=== PATIENT | female | born 1950 | race Caucasian/White ===

== ENCOUNTER → 2019-02-08 | Outpatient (CLI) | payer MEDICARE, OTHER ==
[~2019-02-08] MED LIST: ALPR0.5T PO; ASPI325T32 PO; CRV25T PO; IBUP-2055 PO; LISI-552 PO; METF-397 PO; NITR0.4T39 SL; OMEP40CA36 PO; PREG75CA PO; RANI-514 PO; RT-ALBUINH IH; SIMV20TA3 PO
== END ==
LOC: RAD 12:48
PROVIDERS: ATTEND Internal Medicine Interventional Cardiology
DX: I25.10 Atherosclerotic heart disease of native coronary artery without angina pectoris (principal); E11.9 Type 2 diabetes mellitus without complications; I10 Essential (primary) hypertension; E78.01 Familial hypercholesterolemia; E66.01 Morbid (severe) obesity due to excess calories
CPT/HCPCS: 93306

== ENCOUNTER 2019-04-11 05:41 | Outpatient (CLI) | payer MEDICARE, OTHER ==
[~2019-04-11] VITALS: Ht 152 cm; Wt 104.5 kg
[~2019-04-11 05:41] MED LIST changes: -IBUP-2055 PO; +IBUP-2473 PO; +OMEP40CA27 PO; -OMEP40CA36 PO; -RANI-514 PO; +RANI-607 PO; +SIMV20TA26 PO; -SIMV20TA3 PO
[2019-04-11] MEDS ORDERED: LISI1TAB26 PO (14:09)
== END 2019-04-11 14:16 | disposition home or self-care (01) ==
LOC: PREOP 05:41
PROVIDERS: ATTEND Surgery
DX: Z01.818 Encounter for other preprocedural examination (principal)

== ENCOUNTER 2019-10-21 14:08 | Emergency (ER) | payer MEDICARE, OTHER ==
[~2019-10-21] VITALS: Ht 152.4 cm; Wt 108.9 kg
[~2019-10-21 14:08] MED LIST changes: +LISI1TAB26 PO
--- NOTE | 2019-10-21 14:43 | Diagnostic Imaging Report ---
INDICATION: Fall. FINDINGS: There is a comminuted fracture of the distal femoral diaphysis just above the femoral component of the left knee arthroplasty. Hardware remains well-seated. There is no other soft tissue abnormality. IMPRESSION: Slightly comminuted minimally displaced fracture of the distal left femoral diaphysis just above the femoral component of the left knee arthroplasty. Dictated by: Dictated on workstation # [id number]
--- NOTE | 2019-10-21 14:51 | ED Lower Extremity ---
General Chief Complaint: Lower Extremity Stated Complaint: FALL Nursing Triage Note: Patient reports she lost her balance and fell outside of her home today, reports she landed on her left knee. States she had a total left knee replacement last year. Nursing Sepsis Screen: No Definite Risk History of Present Illness Date Seen by Provider: Oct 21, 2019 Time Seen by Provider: 14:15 Initial Comments [facility] directly on the left knee with excruciating pain brought in by EMS history of total knee replacement by Dr. Torres in that knee Onset: just prior to arrival Pain/Injury Location: right knee Method of Injury: fell, twisted Modifying Factors: Improves With Immobilization; Worse With Movement, Worse With Pain Medication Allergies and Home Medications Allergies Coded Allergies: acetaminophen (Verified Allergy, Mild, ITCHING, 04/11/19) oxycodone (Verified Allergy, Mild, ITCHING, 04/11/19) Home Medications Albuterol Sulfate 1 Puff Puff, 2 PUFF IH Q4H PRN for SHORTNESS OF BREATH, (Reported) Alprazolam 0.5 Mg Tablet, 0.5 MG PO DAILY PRN for ANXIETY, (Reported) Aspirin 325 Mg Tablet.dr, 325 MG PO DAILY, (Reported) Carvedilol 25 Mg Tab, 25 MG PO BID WITH MEALS, (Reported) Ibuprofen 200 Mg Tablet, 400 MG PO Q6H PRN for PAIN-MILD, (Reported) Lisinopril/Hydrochlorothiazide 1 Each Tablet, 1 EACH PO DAILY, (Reported) Metformin HCl 500 Mg Tablet, 500 MG PO DAILY, (Reported) Nitroglycerin 0.4 Mg Tab.subl, 0.4 MG SL UD PRN for CHEST PAIN, (Reported) Omeprazole 40 Mg Capsule.dr, 40 MG PO DAILY, (Reported) Simvastatin 20 Mg Tablet, 20 MG PO DAILY WITH SUPPER, (Reported) Patient Home Medication List Home Medication List Reviewed: Yes Review of Systems Constitutional: no symptoms reported Respiratory: no symptoms reported Cardiovascular: no symptoms reported Musculoskeletal: No back pain; joint pain, joint swelling; No muscle weakness Skin: no symptoms reported Psychiatric/Neurological: Denies Numbness, Denies Paresthesia, Denies Weakness Past [place]-Dqwyix-Naotsu Hx Past Med/Social Hx: Reviewed Nursing Past Med/Soc Hx Patient Social History Alcohol Use: Denies Use Recreational Drug Use: No Smoking Status: Never a Smoker 2nd Hand Smoke Exposure: No Recent Foreign Travel: No Contact w/Someone Who Travel: No Recent Infectious Disease Expo: No Recent Hopitalizations: No Physical Abuse: No Sexual Abuse: No Mistreated: No Fear: No Immunizations Up To Date PED Vaccines UTD: No Date of Pneumonia Vaccine: Dec 07, 2017 Date of Influenza Vaccine: Dec 13, 2018 Seasonal Allergies Seasonal Allergies: Yes (POSSIBLY MILD) Past Medical History Surgeries: Yes (L TKR, L WRIST) Orthopedic Respiratory: Yes (O2 2L AT NIGHT) Asthma Currently Using CPAP: No Currently Using BIPAP: No Cardiac: Yes (STENTS-2006) Coronary Artery Disease, Heart Attack, High Cholesterol, Hypertension Neurological: Yes Headaches /Migraines Sexually Transmitted Disease: No HIV/AIDS: No Genitourinary: No Gastrointestinal: Yes Gastroesophageal Reflux, Chronic Diarrhea Musculoskeletal: Yes (KNEES/HANDS) Arthritis, Chronic Back Pain Endocrine: Yes Diabetes, Non-Insulin dep HEENT: Yes (READING GLASSES) Loss of Vision: Denies Hearing Impairment: Denies Cancer: No Psychosocial: Yes Anxiety Integumentary: Yes (BACTERIAL INFECTION OF SKIN JAN 2019) Blood Disorders: No Adverse Reaction/Blood Tranf: No (HAS HAD BLOOD WITH NO REACTION) Physical Exam Vital Signs Vital Signs - First Documented 10/21/19 14:15 Temp 35.5 Pulse 69 Resp 18 B/P (MAP) 103/84 (90) Pulse Ox 93 O2 Delivery Room Air Capillary Refill : Less Than 3 Seconds Height, Weight, BMI Height: 5'0.00" Weight: 252lbs. 0.0oz. 114.995563oa; 46.00 BMI Method: General Appearance: WD/WN, mild distress HEENT: PERRL/EOMI, TMs normal, pharynx normal Cardiovascular: regular rate, rhythm, no murmur Respiratory: lungs clear, normal breath sounds Gastrointestinal: normal bowel sounds, non tender, soft Hips: bilateral hip non-tender, bilateral hip normal inspection, bilateral hip normal range of motion Knees: left knee deformity, left knee pain, left knee swelling Neurologic/Psychiatric: alert, normal mood/affect, oriented x 3 Skin: normal color, warm/dry Progress/Results/Core Measures Results/Orders My Orders Orders - CHRIS ANDREWS JR, MD Knee 3 View Left (10/21/19 14:11) Vital Signs/I&O 10/21/19 14:15 Temp 35.5 Pulse 69 Resp 18 B/P (MAP) 103/84 (90) Pulse Ox 93 O2 Delivery Room Air Blood Pressure Mean: 90 Departure Impression Primary Impression: Fracture of femur Qualified Codes: S72.492A - Other fracture of lower end of left femur, initial encounter for closed fracture Disposition: XFER SHT-TRM HOSP Condition: Stable Transfer Transfer Reason: Exceeds level of care Time Spoke to Accepting Phy: 14:45 Transfer Progress Notes Discussed with orthopedic surgeon at [facility] is too complicated past and onto the traumatologist Dr. Bonilla who accepted in transfer we'll send to the emergency room Method of Transfer: EMS Departure-Patient Inst. Referrals: SELF,BEENA REY (PCP/Family) Primary Care Physician CHRIS ANDREWS JR, MD Oct 21, 2019 14:51
[2019-10-21] MEDS ORDERED: fentaNYL INJECTION 100 MCG/2 ML AMP ONE (14:58)
[2019-10-21] MEDS ORDERED: fentaNYL INJECTION 100 MCG/2 ML AMP IVP ONE (15:00)
[2019-10-21 15:22] VITALS: BP 108/83
--- OUTSIDE RECORDS SUMMARY | 2019-10-21 15:58 | XMS REPORT | Continuity of Care Document ---
Author Organization Unknown Address Unknown Phone Unavailable Allergies Active Description Code Type Severity Reaction Onset Reported/Identified Relationship to Patient Clinical Status Yes acetaminophen [id number] Reed g Allergy Unknown N/A 10/28/2018 Yes oxycodone [id number] Drug Allergy Unknown N/A 10/28/2018 Yes ADHESIVE TAPE Chemical N/A Other 01/17/2019 01/17/2019 Yes ZOLPIDEM 92463 DRUG INGREDI N/A Other 01/17/2019 01/17/2019 Yes acetaminophen [id number] Reed g Allergy Mild ITCHING 04/11/2019 Yes oxycodone [id number] Drug Allergy Mild ITCHING 04/11/2019 Medications There is no data. Problems Date Dx Coded Attending Type Code Diagnosis Diagnosed By 10/28/2018 Kamron SHI MD Ot E11 .9 TYPE 2 DIABETES MELLITUS WITHOUT COMPLIC 10/28/2018 Kamron SHI MD, Ot E78 .5 HYPERLIPIDEMIA, UNSPECIFIED 10/28/2018 Kamron SHI MD Ot I10 ESSENTIAL (PRIMARY) HYPERTENSION 10/28/2018 Kamron SHI MD Ot I25.119 ATHSCL HEART DISEASE OF [place] COR ART W 10/28/2018 Kamron SHI MD Ot J45.909 UNSPECIFIED ASTHMA, UNCOMPLICATED 10/28/2018 Kamron SHI MD Ot T82.855A STENOSIS OF CORONARY ARTERY STENT, INITI 10/28/2018 Kamron SHI MD Ot Z79.84 USP (CURRENT) USE OF ORAL HYPOGLYC 10/28/2018 Kamron SHI MD, Ot Z79.899 OTHER USP (CURRENT) DRUG THERAPY 10/28/2018 Kamron SHI MD Ot Z95 .5 PRESENCE OF CORONARY ANGIOPLASTY IMPLANT 11/02/2018 Kamron SHI MD Ot E11 .9 TYPE 2 DIABETES MELLITUS WITHOUT COMPLIC 11/02/2018 Kamron SHI MD Ot E78 .5 HYPERLIPIDEMIA, UNSPECIFIED 11/02/2018 Kamron SHI MD Ot I10 ESSENTIAL (PRIMARY) HYPERTENSION 11/02/2018 Kamron SHI MD Ot I25.119 ATHSCL HEART DISEASE OF [place] ART W 11/02/2018 Kamron SHI MD Ot J45.909 UNSPECIFIED ASTHMA, UNCOMPLICATED 11/02/2018 Kamron SHI MD Ot T82.855A STENOSIS OF CORONARY ARTERY STENT, INITI 11/02/2018 Kamron SHI MD Ot Z79.84 USP (CURRENT) USE OF ORAL HYPOGLYC 11/02/2018 Kamron SHI MD Ot Z79.899 OTHER USP (CURRENT) DRUG THERAPY 11/02/2018 Kamron SHI MD Ot Z95 .5 PRESENCE OF CORONARY ANGIOPLASTY IMPLANT 11/02/2018 Kamron SHI MD Ot E11 .9 TYPE 2 DIABETES MELLITUS WITHOUT COMPLIC 11/02/2018 Kamron SHI MD Ot E78 .5 HYPERLIPIDEMIA, UNSPECIFIED 11/02/2018 Kamron SHI MD Ot I10 ESSENTIAL (PRIMARY) HYPERTENSION 11/02/2018 Kamron SHI MD Ot I25.119 ATHSCL HEART DISEASE OF [place] ART W 11/02/2018 Kamron SHI MD Ot J45.909 UNSPECIFIED ASTHMA, UNCOMPLICATED 11/02/2018 Kamron SHI MD Ot T82.855A STENOSIS OF CORONARY ARTERY STENT, INITI 11/02/2018 Kamron SHI MD Ot 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 11/02/2018 Kamron SHI MD Ot Z79.899 OTHER SQL DATA ANALYST (CURRENT) DRUG THERAPY 11/02/2018 Kamron SHI MD Ot Z95 .5 PRESENCE OF CORONARY ANGIOPLASTY IMPLANT 02/18/2019 Kamron SHI MD Ot E11 .9 TYPE 2 DIABETES MELLITUS WITHOUT COMPLIC 02/18/2019 Kamron SHI MD Ot E66.01 MORBID (SEVERE) OBESITY DUE TO EXCESS CA 02/18/2019 Kamron SHI MD Ot 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 02/18/2019 Kamron SHI MD Ot I10 ESSENTIAL (PRIMARY) HYPERTENSION 02/18/2019 Kamron SHI MD Ot I25.10 ATHSCL HEART DISEASE OF [place] CORONARY 03/08/2019 Kamron SHI MD Ot E11 .9 TYPE 2 DIABETES MELLITUS WITHOUT COMPLIC 03/08/2019 Kamron SHI MD, Ot E66.01 MORBID (SEVERE) OBESITY DUE TO EXCESS CA 03/08/2019 Kamron SHI MD Ot 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 03/08/2019 Kamron SHI MD Ot I10 ESSENTIAL (PRIMARY) HYPERTENSION 03/08/2019 Kamron SHI MD, Ot I25.10 ATHSCL HEART DISEASE OF [place] CORONARY 04/11/2019 AYO KWAN DO Ot Z01.8 18 ENCOUNTER FOR OTHER PREPROCEDURAL EXAMIN Procedures Code Description Performed By Per formed On REF23 AMB REFERRAL TO ENT 01/19/2019 Results Test Result Range Automated blood complete blood count (he mogram) panel - 10/28/18 08:54 Blood leukocytes automated count (number/volume) 7.9 10*3/uL 4.3-11.0 Blood erythrocytes automated count (number/volume) 4.94 10*6/uL 4.35-5.85 Venous blood hemoglobin measurement (mass/volume) 14.9 g/dL 11.5-16.0 Blood hematocrit (volume fraction) 46 % 35-52 Automated erythrocyte mean corpuscular volume 92 [ foz_us] 80-99 Automated erythrocyte mean corpuscular h emoglobin (mass per erythrocyte) 30 pg 25-34 Automated erythrocyte mean corpuscular h emoglobin concentration measurement (mass/volume) 33 g/dL 32-36 Automated erythrocyte distribution width ratio 13. 5 % 10.0- 14.5 Automated blood platelet count (count/volume) 232 10*3/uL 130-400 Automated blood platelet mean volume measurement 10.6 [foz_us] 7.4-10.4 PT panel in platelet poor plasma by coag ulation assay - 10/28/18 08:54 Prothrombin time (PT) in platelet poor plasma by coagu lation assay 13.0 s 12.2-14.7 INR in platelet poor plasma or blood by coagulation as say 0.9 0.8-1.4 Activated partial thromboplastin time (a PTT) in platelet poor plasma bycoagulation assay - 10/28/18 08:54 Activated partial thromboplastin time (a PTT) in platelet poor plasma bycoagulation assay 28 s 24-35 Comprehensive metabolic panel - 10/28/18 08:54 Serum or plasma sodium measurement (moles/volume) 140 mmol/L 135-145 Serum or plasma potassium measurement (moles/volume) 4.0 mmol/L 3.6-5.0 Serum or plasma chloride measurement (moles/volume) 100 mmol/L 98-107 Carbon dioxide 31 mmol/L 21-32 Serum or plasma anion gap determination (moles/volume) 9 mmol/L 5-14 Serum or plasma urea nitrogen measurement (mass/volume ) 11 mg/dL 7-18 Serum or plasma creatinine measurement (mass/volume) 0.75 mg/dL 0.60-1.30 Serum or plasma urea nitrogen/creatinine mass ratio 15 NRG Serum or plasma creatinine measurement w ith calculation of estimated glomerular filtration rate > NRG Serum or plasma glucose measurement (mass/volume) 170 mg/dL 70-105 Serum or plasma calcium measurement (mass/volume) 9.5 mg/dL 8.5-10.1 Serum or plasma total bilirubin measurement (mass/volu me) 0.9 mg/dL 0.1-1.0 Serum or plasma alkaline phosphatase phi surement (enzymatic activity/volume) 70 U/L 40-136 Serum or plasma aspartate aminotransfera se measurement (enzymatic activity/volume) 22 U/L 5-34 Serum or plasma alanine aminotransferase measurement (enzymatic activity/volume) 24 U/L 0-55 Serum or plasma protein measurement (mass/volume) 7.0 g/dL 6.4-8.2 Serum or plasma albumin measurement (mass/volume) 3.9 g/dL 3.2-4.5 CALCIUM CORRECTED 9.6 mg/dL 8.5-10.1 Lipid 1996 panel - 10/28/18 08:54 Serum or plasma triglyceride measurement (mass/volume) 112 mg/dL <150 Serum or plasma cholesterol measurement (mass/volume) 127 mg/dL < 200 Serum or plasma cholesterol in HDL measurement (mass/v olume) 47 mg/dL 40-60 Cholesterol in LDL [mass/volume] in serum or plasma by direct assay 71 mg/dL 1-129 Serum or plasma cholesterol in VLDL measurement (mass/ volume) 22 mg/dL 5-40 Methicillin resistant Staphylococcus aur eus (MRSA) screening culture - 10/28/18 08:54 Methicillin resistant Staphylococcus aureus (MRSA) scr eening culture NEG NRG Encounters ACCT No. Visit Date/Time Discharge Status Pt. Type Provider Facility Loc./Unit Complaint [id number] 01/19/2019 11:27:24 9 23:59:59 CLS Outpatient ANDRA MARTINEZ [facility] EXPUR [id number] 01/17/2019 14:16:31 9 23:59:59 CLS Outpatient ALVIN VIOLETTE Rojas [facility] EXPUR [id number] 04/18/2019 08:55:00 12:15:00 DIS Outpatient AYO KWAN DO [facility] ENDO SCREENING/GASTRITIS [id number] 04/11/2019 05:41:00 14:16:00 DIS Outpatient AYO KWAN DO [facility] PREOP COLONOSCOPY/EGD [id number] 02/08/2019 12:48:00 23:59:59 CLS Outpatient Kamron SHI MD [facility] RAD OTHER CHEST PAIN [id number] 10/28/2018 10:35:00 23:59:59 CLS Preadmit Kamron SHI MD [facility] RAD OTHER CHEST PAIN [id number] 10/28/2018 08:21:00 13:50:00 DIS Outpatient Kamron SHI MD [facility] CATH CAD
== END 2019-10-21 15:22 | disposition short-term general hospital (02) ==
LOC: EDUNIT# 14:08 → ER FS 14:11
DX: S72.92XA Unspecified fracture of left femur, initial encounter for closed fracture (principal); I10 Essential (primary) hypertension; E11.9 Type 2 diabetes mellitus without complications; I25.10 Atherosclerotic heart disease of native coronary artery without angina pectoris; I25.2 Old myocardial infarction; J45.909 Unspecified asthma, uncomplicated; E78.00 Pure hypercholesterolemia, unspecified; K21.9 Gastro-esophageal reflux disease without esophagitis; G43.909 Migraine, unspecified, not intractable, without status migrainosus; F41.9 Anxiety disorder, unspecified; G89.29 Other chronic pain; M54.9 Dorsalgia, unspecified; Z79.1 Long term (current) use of non-steroidal anti-inflammatories (NSAID); Z88.6 Allergy status to analgesic agent; Z88.5 Allergy status to narcotic agent; Z96.652 Presence of left artificial knee joint; Z79.82 Long term (current) use of aspirin; Z79.84 Long term (current) use of oral hypoglycemic drugs; W18.39XA Other fall on same level, initial encounter; X50.1XXA Overexertion from prolonged static or awkward postures, initial encounter; Y92.59 Other trade areas as the place of occurrence of the external cause
CPT/HCPCS: 73562; 99284; L1830

== ENCOUNTER 2020-03-13 08:11 | Emergency (ER) | payer MEDICARE, OTHER ==
[~2020-03-13] VITALS: Ht 152.4 cm; Wt 104.3 kg
[2020-03-13] MEDS ORDERED: NS IV 500 ML 500 ML IV SCH (08:30)
[2020-03-13] MEDS ORDERED: ONDANSETRON 4 MG/2 ML (SDV) Z0FRAN IVP ONE (08:30)
--- NOTE | 2020-03-13 08:32 | ED Abdominal Pain ---
General Chief Complaint: Abdominal/GI Problems Stated Complaint: CHILLS HEADACHE VOMITING/NAUSEA Nursing Triage Note: Patient reports she has chronic intermittent nausea and vomiting, which she states is "undulation of my bowels." She denies any fever, chills, cough, nasal congestion, etc. She denies any sick contacts. She states she has required anti-emetics, pain medications, and fluids in the past, denies any surgeries to her abdomen. Sepsis Screen: No Definite Risk Source of Information: Patient Exam Limitations: No Limitations History of Present Illness Date Seen by Provider: Mar 13, 2020 Time Seen by Provider: 08:20 Initial Comments 70-year-old female presents with nausea and vomiting since 3 p.m. yesterday. Nausea has persisted in vomiting has diminished. Patient has not eaten since yesterday morning, but has tried to take some liquids. Complains of abdominal cramping which is all over and nonlocalized. History of similar episodes in the past, although patient states it's been a few years since this is happened to her. Denies any recent illness, fever or chills, or suspicion of food poisoning. Allergies and Home Medications Allergies Coded Allergies: oxycodone (Verified Allergy, Mild, ITCHING, 04/11/19) codeine (Verified Allergy, Unknown, 03/13/20) Home Medications Albuterol Sulfate 1 Puff Puff, 2 PUFF IH Q4H PRN for SHORTNESS OF BREATH, (Reported) Alprazolam 0.5 Mg Tablet, 0.5 MG PO DAILY PRN for ANXIETY, (Reported) Aspirin 325 Mg Tablet.dr, 325 MG PO DAILY, (Reported) Carvedilol 25 Mg Tab, 25 MG PO BID WITH MEALS, (Reported) Ibuprofen 200 Mg Tablet, 400 MG PO Q6H PRN for PAIN-MILD, (Reported) Lisinopril/Hydrochlorothiazide 1 Each Tablet, 1 EACH PO DAILY, (Reported) Metformin HCl 500 Mg Tablet, 500 MG PO DAILY, (Reported) Nitroglycerin 0.4 Mg Tab.subl, 0.4 MG SL UD PRN for CHEST PAIN, (Reported) Omeprazole 40 Mg Capsule.dr, 40 MG PO DAILY, (Reported) Ondansetron 4 Mg Tab.rapdis, 4 MG PO TID Prescribed by: GUICHO POWELL on 03/13/20 0936 Simvastatin 20 Mg Tablet, 20 MG PO DAILY WITH SUPPER, (Reported) Patient Home Medication List Home Medication List Reviewed: Yes Review of Systems Review of Systems Constitutional: No chills, No dizziness, No fever; malaise; No weakness, No weight loss EENTM: No Symptoms Reported Respiratory: Denies Cough, Denies Shortness of Air Cardiovascular: Denies Chest Pain, Denies Palpitations, Denies Syncope Gastrointestinal: See HPI; Denies Abdomen Distended; Abdominal Pain; Denies Constipated (last BM, normal, yesterday morning), Denies Diarrhea; Nausea, Poor Appetite, Poor Fluid Intake, Vomiting Genitourinary: Denies Burning, Denies Frequency Musculoskeletal: No back pain, No joint pain Skin: No change in color, No rash Past Ghjfhks-Hmuxau-Fsrojo Hx Past Med/Social Hx: Reviewed Nursing Past Med/Soc Hx Patient Social History 2nd Hand Smoke Exposure: No Recent Foreign Travel: No Contact w/Someone Who Travel: No Recent Infectious Disease Expo: No Recent Hopitalizations: No Immunizations Up To Date PED Vaccines UTD: No Date of Pneumonia Vaccine: Dec 07, 2017 Date of Influenza Vaccine: Dec 13, 2018 Seasonal Allergies Seasonal Allergies: Yes (POSSIBLY MILD) Past Medical History Surgeries: Yes (L TKR, L WRIST) Orthopedic Respiratory: Yes (O2 2L AT NIGHT) Asthma Currently Using CPAP: No Currently Using BIPAP: No Cardiac: Yes (STENTS-2006) Coronary Artery Disease, Heart Attack, High Cholesterol, Hypertension Neurological: Yes Headaches /Migraines Sexually Transmitted Disease: No HIV/AIDS: No Genitourinary: No Gastrointestinal: Yes Gastroesophageal Reflux, Chronic Diarrhea Musculoskeletal: Yes (KNEES/HANDS) Arthritis, Chronic Back Pain Endocrine: Yes Diabetes, Non-Insulin dep HEENT: Yes (READING GLASSES) Loss of Vision: Denies Hearing Impairment: Denies Cancer: No Psychosocial: Yes Anxiety Integumentary: Yes (BACTERIAL INFECTION OF SKIN JAN 2019) Blood Disorders: No Adverse Reaction/Blood Tranf: No (HAS HAD BLOOD WITH NO REACTION) Physical Exam Vital Signs Vital Signs - First Documented 03/13/20 08:21 Temp 36.6 Pulse 78 Resp 16 B/P (MAP) 150/78 (102) Pulse Ox 97 O2 Delivery Room Air Capillary Refill : Less Than 3 Seconds Height/Weight/BMI Height: 5'0.00" Weight: 252lbs. 0.0oz. 114.822787eu; 44.00 BMI Method: General Appearance: WD/WN, no apparent distress HEENT: PERRL/EOMI, normal ENT inspection Neck: non-tender, supple Respiratory: chest non-tender, lungs clear, normal breath sounds Cardiovascular: regular rate, rhythm, no edema, no JVD Gastrointestinal: normal bowel sounds, soft, no pulsatile mass; No guarding, No rebound Extremities: non-tender, normal inspection Back: normal inspection, no CVA tenderness Neurologic/Psychiatric: alert, normal mood/affect Skin: normal color, warm/dry Progress/Results/Core Measures Results/Orders Lab Results Laboratory Tests Test 03/13/20 08:48 Range/Units White Blood Count 14.6 H 4.3-11.0 10^3/uL Red Blood Count 4.99 4.35-5.85 10^6/uL Hemoglobin 14.8 11.5-16.0 G/DL Hematocrit 43 35-52 % Mean Corpuscular Volume 86 80-99 FL Mean Corpuscular Hemoglobin 30 25-34 PG Mean Corpuscular Hemoglobin Concent 35 32-36 G/DL Red Cell Distribution Width 13.8 10.0-14.5 % Platelet Count 289 130-400 10^3/uL Mean Platelet Volume 10.2 7.4-10.4 FL Immature Granulocyte % (Auto) 0 % Neutrophils (%) (Auto) 83 H 42-75 % Lymphocytes (%) (Auto) 11 L 12-44 % Monocytes (%) (Auto) 5 0-12 % Eosinophils (%) (Auto) 0 0-10 % Basophils (%) (Auto) 1 0-10 % Neutrophils # (Auto) 12.1 H 1.8-7.8 X 10^3 Lymphocytes # (Auto) 1.7 1.0-4.0 X 10^3 Monocytes # (Auto) 0.8 0.0-1.0 X 10^3 Eosinophils # (Auto) 0.1 0.0-0.3 10^3/uL Basophils # (Auto) 0.1 0.0-0.1 10^3/uL Immature Granulocyte # (Auto) 0.0 0.0-0.1 10^3/uL Neutrophils % (Manual) 83 % Lymphocytes % (Manual) 7 % Monocytes % (Manual) 6 % Eosinophils % (Manual) 0 % Basophils % (Manual) 0 % Atypical Lymphocytes 4 % Blood Morphology Comment NORMAL Sodium Level 138 135-145 MMOL/L Potassium Level 3.6 3.6-5.0 MMOL/L Chloride Level 97 L 98-107 MMOL/L Carbon Dioxide Level 28 21-32 MMOL/L Anion Gap 13 5-14 MMOL/L Blood Urea Nitrogen 17 7-18 MG/DL Creatinine 0.64 0.60-1.30 MG/DL Estimat Glomerular Filtration Rate > 60 BUN/Creatinine Ratio 27 Glucose Level 212 H 70-105 MG/DL Calcium Level 9.9 8.5-10.1 MG/DL Corrected Calcium 9.7 8.5-10.1 MG/DL Total Bilirubin 1.0 0.1-1.0 MG/DL Aspartate Amino Transf (AST/SGOT) 15 5-34 U/L Alanine Aminotransferase (ALT/SGPT) 12 0-55 U/L Alkaline Phosphatase 103 40-136 U/L Total Protein 7.4 6.4-8.2 GM/DL Albumin 4.3 3.2-4.5 GM/DL My Orders Orders - GUICHO POWELL DO Ed Iv/Invasive Line Start (03/13/20 08:18) Cbc With Automated Diff (03/13/20 08:18) Comprehensive Metabolic Panel (03/13/20 08:18) Ondansetron Injection (Zofran Injectio (03/13/20 08:30) Ns Iv 500 Ml (Sodium Chloride 0.9%) (03/13/20 08:30) Abdomen Flat & Upright/Decub (03/13/20 08:25) Manual Differential (03/13/20 08:48) Medications Given in ED Current Medications Medications Dose Ordered Sig/Amy Route Start Time Stop Time Status Last Admin Dose Admin Ondansetron HCl 4 mg ONCE ONCE IVP 03/13/20 08:30 03/13/20 08:31 DC 03/13/20 08:45 4 MG Vital Signs/I&O 03/13/20 08:21 Temp 36.6 Pulse 78 Resp 16 B/P (MAP) 150/78 (102) Pulse Ox 97 O2 Delivery Room Air Blood Pressure Mean: 102 Progress Progress Note : Progress Note Patient much improved, nausea and vomiting resolved and not having any abdominal pain at discharge. Normal labs and normal x-rays of the abdomen. Discussed clear liquid diet, when necessary Zofran and follow up with her doctor in 2-3 days if not improving. Diagnostic Imaging Comments Date of Exam:03/13/20 ABDOMEN FLAT & UPRIGHT/DECUB Indication: Vomiting and nausea as well as abdominal cramping. Time of exam: 8:48 AM No free air is identified. The bowel gas pattern is nonobstructed. No pathologic calcifications are identified. Impression: No acute abnormality is detected. Dictated on workstation # [id number] Dict: 03/13/20 0900 Trans: 03/13/20 09 CVB [id number] Interpreted by: ADONIS PAINTER MD Electronically signed by: Departure Impression Primary Impression: Nausea and vomiting Qualified Codes: R11.2 - Nausea with vomiting, unspecified Disposition: HOME, SELF-CARE Condition: Improved Departure-Patient Inst. Decision time for Depature: 09:36 Referrals: SELFBEENA MD (PCP/Family) Primary Care Physician Patient Instructions: Nausea and Vomiting, Adult Add. Discharge Instructions: see your doctor in 2to 3 days if you are not feeling better. RETURN to the ER sooner if worse All discharge instructions reviewed with patient and/or family. Voiced und erstanding. Scripts Ondansetron (Ondansetron Odt) 4 Mg Tab.rapdis 4 MG PO TID for Nausea, #20 TAB Prov: GUICHO POWELL DO 03/13/20 GUICHO POWELL DO Mar 13, 2020 08:32
[2020-03-13 09:00] LABS: EOSINOPHILS % (AUTO) 0 % (0-10); HEMATOCRIT 43 % (35-52); HEMOGLOBIN 14.8 G/DL (11.5-16.0); LYMPHOCYTES % (AUTO) 11 % (12-44); MEAN CORPUSCULAR HEMOGLOBIN 30 PG (25-34); MEAN CORPUSCULAR HGB CONC 35 G/DL (32-36); MEAN CORPUSCULAR VOLUME 86 FL (80-99); MEAN PLATELET VOLUME 10.2 FL (7.4-10.4); MONOCYTES % (AUTO) 5 % (0-12); NEUTROPHILS % (AUTO) 83 % (42-75); PLATELET COUNT 289 10^3/uL (130-400); WHITE BLOOD COUNT 14.6 10^3/uL (4.3-11.0)
--- NOTE | 2020-03-13 09:01 | Diagnostic Imaging Report ---
Indication: Vomiting and nausea as well as abdominal cramping. Time of exam: 8:48 AM No free air is identified. The bowel gas pattern is nonobstructed. No pathologic calcifications are identified. Impression: No acute abnormality is detected. Dictated by: Dictated on workstation # [id number]
[2020-03-13 09:03] LABS: BASOPHILS # (AUTO) 0.1 10^3/uL (0.0-0.1); BASOPHILS % (AUTO) 1 % (0-10); EOSINOPHILS # (AUTO) 0.1 10^3/uL (0.0-0.3); LYMPHOCYTES # (AUTO) 1.7 X 10^3 (1.0-4.0); MONOCYTES # (AUTO) 0.8 X 10^3 (0.0-1.0); NEUTROPHILS # (AUTO) 12.1 X 10^3 (1.8-7.8)
[2020-03-13 09:23] LABS: ATYPICAL LYMPHOCYTES 4 %; BASOPHILS % (MANUAL) 0 %; EOSINOPHILS % (MANUAL) 0 %; LYMPHOCYTES % (MANUAL) 7 %; MONOCYTES % (MANUAL) 6 %; NEUTROPHILS % (MANUAL) 83 %; RBC MORPH NORMAL
[2020-03-13 09:24] LABS: BUN/CREATININE RATIO 27; CARBON DIOXIDE 28 MMOL/L (21-32); CHLORIDE 97 MMOL/L (98-107); CREATININE SERUM 0.64 MG/DL (0.60-1.30); GFR ESTIMATED > 60; POTASSIUM 3.6 MMOL/L (3.6-5.0); SODIUM 138 MMOL/L (135-145)
[2020-03-13 09:25] LABS: ALANINE AMINOTRANSFERASE 12 U/L (0-55); ALBUMIN 4.3 GM/DL (3.2-4.5); ALKALINE PHOSPHATASE 103 U/L (40-136); CALCIUM 9.9 MG/DL (8.5-10.1); GLUCOSE 212 MG/DL (70-105); TOTAL PROTEIN 7.4 GM/DL (6.4-8.2)
[2020-03-13] MEDS ORDERED: ONDA4TAB11 PO (09:36)
[2020-03-13 09:50] VITALS: BP 134/65
== END 2020-03-13 09:50 | disposition home or self-care (01) ==
LOC: EDUNIT# 08:11 → ER FS 08:14
DX: R11.2 Nausea with vomiting, unspecified (principal); I10 Essential (primary) hypertension; I25.2 Old myocardial infarction; I25.10 Atherosclerotic heart disease of native coronary artery without angina pectoris; E11.9 Type 2 diabetes mellitus without complications; E78.00 Pure hypercholesterolemia, unspecified; J45.909 Unspecified asthma, uncomplicated; K21.9 Gastro-esophageal reflux disease without esophagitis; Z79.84 Long term (current) use of oral hypoglycemic drugs; Z88.5 Allergy status to narcotic agent; Z99.81 Dependence on supplemental oxygen; Z79.82 Long term (current) use of aspirin
CPT/HCPCS: 36415; 74019; 80053; 85007; 85027

== ENCOUNTER → 2020-10-03 | Outpatient (CLI) | payer MEDICARE, OTHER ==
[~2020-10-03] MED LIST changes: -LISI-552 PO; +LISI20TA26 PO; -OMEP40CA27 PO; +OMEP40CA6 PO; +ONDA4TAB11 PO
--- NOTE | 2020-10-03 13:20 | Diagnostic Imaging Report ---
PROCEDURE: CT head without contrast. TECHNIQUE: Multiple contiguous axial images were obtained through the brain without the use of intravenous contrast. Auto Exposure Controls were utilized during the CT exam to meet ALARA standards for radiation dose reduction. INDICATION: Weakness on the left. No prior studies are available for comparison. FINDINGS: The ventricles and sulci are within normal limits. No sulcal effacement or midline shift is identified. No acute intra-axial or extra-axial hemorrhage is detected. Cisterns are patent. The visualized paranasal sinuses are clear. IMPRESSION: No acute intracranial process is detected. Dictated by: Dictated on workstation # [id number]
== END ==
LOC: RAD FS 12:29
PROVIDERS: ATTEND Family Medicine
DX: I69.354 Hemiplegia and hemiparesis following cerebral infarction affecting left non-dominant side (principal)
CPT/HCPCS: 70450

== ENCOUNTER 2021-08-14 09:32 | Inpatient (IN) | payer MEDICARE, OTHER ==
[~2021-08-14] VITALS: Ht 152 cm; Wt 104.3 kg
[~2021-08-14 09:32] MED LIST changes: -LISI1TAB26 PO; +LISI1TAB48 PO
--- NOTE | 2021-08-14 09:44 | ED GI ---
General Chief Complaint: Abdominal/GI Problems Stated Complaint: NAUSEA; DIZZINESS; BOWEL CONSTIPATION History of Present Illness Date Seen by Provider: Aug 14, 2021 Time Seen by Provider: 09:43 Initial Comments 71-year-old female with PMH of IBS/CAD with 2 heart attacks in the past, the last one being 6 years ago approximately/NIDDM 2/asthma, is here with complaints of nausea, intermittent abdominal pain, and lightheadedness which has been going on for the past 1 week. Patient feels lethargic and has associated loss of appetite. Patient's last meal was yesterday dinner, where she had a small sandwich. Patient is only nauseous, but not having any actual vomiting. Patient reports able to tolerate liquids at home. Patient also complains of intermittent diarrhea over the past week as well. She has not seen her PCP since having the symptoms. Denies chest pain, shortness of breath, dysuria, palpitations, neck stiffness or neck pain, headache, hematemesis, hematochezia, or melena. Allergies and Home Medications Allergies Coded Allergies: oxycodone (Verified Allergy, Mild, ITCHING, 04/11/19) codeine (Verified Allergy, Unknown, 03/13/20) Patient Home Medication List Home Medication List Reviewed: Yes Albuterol Sulfate (Proair Hfa) 1 Puff Puff, 2 PUFF IH Q4H PRN for SHORTNESS OF BREATH, (Reported) Entered as Reported by: ZENIA PABON on 10/28/18919 Alprazolam (Xanax) 0.5 Mg Tablet, 0.5 MG PO DAILY PRN for ANXIETY, (Reported) Entered as Reported by: ZENIA PABON on 10/28/18919 Aspirin (Aspirin EC) 325 Mg Tablet.dr, 325 MG PO DAILY, (Reported) Entered as Reported by: ZENIA PABON on 10/28/18920 Carvedilol (Coreg) 25 Mg Tab, 25 MG PO BID WITH MEALS, (Reported) Entered as Reported by: ZENIA PABON on 10/28/18910 Ibuprofen (Ibuprofen) 200 Mg Tablet, 400 MG PO Q6H PRN for PAIN-MILD, (Reported) Entered as Reported by: ZENIA PABON on 10/28/18920 Lisinopril/Hydrochlorothiazide (Lisinopril-Hctz 20-25 mg Tab) 1 Each Tablet, 1 EACH PO DAILY, (Reported) Entered as Reported by: SALVATORE JUAREZ on 04/11/19 1409 Metformin HCl (Metformin HCl) 500 Mg Tablet, 500 MG PO DAILY, (Reported) Entered as Reported by: ZENIA PABON on 10/28/18919 Nitroglycerin (Nitroglycerin) 0.4 Mg Tab.subl, 0.4 MG SL UD PRN for CHEST PAIN, (Reported) Entered as Reported by: ZENIA PABON on 10/28/18919 Omeprazole (Omeprazole) 40 Mg Capsule.dr, 40 MG PO DAILY, (Reported) Entered as Reported by: ZENIA PABON on 10/28/18919 Ondansetron (Ondansetron Odt) 4 Mg Tab.rapdis, 4 MG PO TID Prescribed by: GUICHO POWELL on 03/13/20 0936 Simvastatin (Simvastatin) 20 Mg Tablet, 20 MG PO DAILY WITH SUPPER, (Reported) Entered as Reported by: ZENIA PABON on 10/28/18919 Review of Systems Review of Systems Constitutional: malaise EENTM: No Symptoms Reported Respiratory: No Symptoms Reported Cardiovascular: No Symptoms Reported Gastrointestinal: Abdominal Pain, Diarrhea, Nausea, Poor Appetite Genitourinary: No Symptoms Reported Musculoskeletal: no symptoms reported Skin: no symptoms reported Psychiatric/Neurological: No Symptoms Reported Endocrine: No Symptoms Reported Hematologic/Lymphatic: No Symptoms Reported Past Mllrtje-Rprana-Dqhazs Hx Immunizations Up To Date PED Vaccines UTD: No Seasonal Allergies Seasonal Allergies: Yes (POSSIBLY MILD) Past Medical History Surgeries: Yes (L TKR, L WRIST) Orthopedic Respiratory: Yes (O2 2L AT NIGHT) Asthma Currently Using CPAP: No Currently Using BIPAP: No Cardiac: Yes (STENTS-2007) Coronary Artery Disease, Heart Attack, High Cholesterol, Hypertension Neurological: Yes Headaches /Migraines Sexually Transmitted Disease: No HIV/AIDS: No Genitourinary: No Gastrointestinal: Yes Gastroesophageal Reflux, Chronic Diarrhea Musculoskeletal: Yes (KNEES/HANDS) Arthritis, Chronic Back Pain Endocrine: Yes Diabetes, Non-Insulin dep HEENT: Yes (READING GLASSES) Loss of Vision: Denies Hearing Impairment: Denies Cancer: No Psychosocial: Yes Anxiety Integumentary: Yes (BACTERIAL INFECTION OF SKIN JAN 2019) Blood Disorders: No Adverse Reaction/Blood Tranf: No (HAS HAD BLOOD WITH NO REACTION) Physical Exam Vital Signs Vital Signs - First Documented 08/14/21 09:35 Temp 35.5 Pulse 67 Resp 18 B/P (MAP) 131/71 (91) Pulse Ox 93 O2 Delivery Room Air Capillary Refill : Height/Weight/BMI Height: 5'0.00" Weight: 252lbs. 0.0oz. 114.295562sg; 44.00 BMI Method: General Appearance: mild distress, obese, other (tired) HEENT: PERRL/EOMI Neck: non-tender, full range of motion, supple, normal inspection Respiratory: chest non-tender, lungs clear, normal breath sounds Cardiovascular: regular rate, rhythm, no edema Gastrointestinal: normal bowel sounds, soft, tenderness (diffuse) Back: no CVA tenderness Neurologic/Psychiatric: alert, normal mood/affect, oriented x 3 Skin: pallor Lymphatic: no adenopathy Focused Exam Lactate Level 08/14/21 10:14: Lactic Acid Level 1.72 Lactic Acid Level Laboratory Tests Test 08/14/21 10:14 Lactic Acid Level 1.72 MMOL/L (0.50-2.00) Progress/Results/Core Measures Results/Orders Lab Results Laboratory Tests Test 08/14/21 09:51 08/14/21 09:59 08/14/21 10:14 08/14/21 11:33 Range/Units White Blood Count 15.1 H 4.3-11.0 10^3/uL Red Blood Count 4.98 3.80-5.11 10^6/uL Hemoglobin 15.1 11.5-16.0 g/dL Hematocrit 44 35-52 % Mean Corpuscular Volume 89 80-99 fL Mean Corpuscular Hemoglobin 30 25-34 pg Mean Corpuscular Hemoglobin Concent 34 32-36 g/dL Red Cell Distribution Width 12.6 10.0-14.5 % Platelet Count 304 130-400 10^3/uL Mean Platelet Volume 9.9 9.0-12.2 fL Immature Granulocyte % (Auto) 0 % Neutrophils (%) (Auto) 82 H 42-75 % Lymphocytes (%) (Auto) 10 L 12-44 % Monocytes (%) (Auto) 6 0-12 % Eosinophils (%) (Auto) 1 0-10 % Basophils (%) (Auto) 0 0-10 % Neutrophils # (Auto) 12.3 H 1.8-7.8 10^3/uL Lymphocytes # (Auto) 1.6 1.0-4.0 10^3/uL Monocytes # (Auto) 1.0 0.0-1.0 10^3/uL Eosinophils # (Auto) 0.1 0.0-0.3 10^3/uL Basophils # (Auto) 0.1 0.0-0.1 10^3/uL Immature Granulocyte # (Auto) 0.0 0.0-0.1 10^3/uL Neutrophils % (Manual) 80 % Lymphocytes % (Manual) 16 % Monocytes % (Manual) 2 % Eosinophils % (Manual) 1 % Band Neutrophils 1 % Blood Morphology Comment NORMAL Sodium Level 130 L 135-145 MMOL/L Potassium Level 3.9 3.6-5.0 MMOL/L Chloride Level 90 L 98-107 MMOL/L Carbon Dioxide Level 29 21-32 MMOL/L Anion Gap 11 5-14 MMOL/L Blood Urea Nitrogen 29 H 7-18 MG/DL Creatinine 2.17 H 0.60-1.30 MG/DL Estimat Glomerular Filtration Rate 24 BUN/Creatinine Ratio 13 Glucose Level 204 H 70-105 MG/DL Calcium Level 10.1 8.5-10.1 MG/DL Corrected Calcium 10.0 8.5-10.1 MG/DL Total Bilirubin 0.7 0.1-1.0 MG/DL Aspartate Amino Transf (AST/SGOT) 19 5-34 U/L Alanine Aminotransferase (ALT/SGPT) 12 0-55 U/L Alkaline Phosphatase 99 40-136 U/L Troponin I < 0.30 <0.30 NG/ML Total Protein 7.3 6.4-8.2 GM/DL Albumin 4.1 3.2-4.5 GM/DL Lipase 23 8-78 U/L Lactic Acid Level 1.72 0.50-2.00 MMOL/L Urine Color YELLOW Urine Clarity SL CLOUDY Urine pH 6.0 5-9 Urine Specific [place] >=1.030 1.016-1.022 Urine Protein 2+ H NEGATIVE Urine Glucose (UA) NEGATIVE NEGATIVE Urine Ketones NEGATIVE NEGATIVE Urine Nitrite NEGATIVE NEGATIVE Urine Bilirubin NEGATIVE NEGATIVE Urine Urobilinogen 0.2 < = 1.0 MG/DL Urine Leukocyte Esterase NEGATIVE NEGATIVE Urine RBC (Auto) NEGATIVE NEGATIVE Urine RBC NONE /HPF Urine WBC NONE /HPF Urine Crystals PRESENT H /LPF Urine Calcium Oxalate Crystals FEW H /LPF Urine Amorphous Sediment FEW CHAPO URATES H /LPF Urine Bacteria NEGATIVE /HPF Urine Casts PRESENT /LPF Urine Hyaline Casts 25-50 H /LPF Urine Mucus NEGATIVE /LPF Urine Culture Indicated NO Urine Opiates Screen POSITIVE H NEGATIVE Urine Oxycodone Screen NEGATIVE NEGATIVE Urine Methadone Screen NEGATIVE NEGATIVE Urine Propoxyphene Screen NEGATIVE NEGATIVE Urine Barbiturates Screen NEGATIVE NEGATIVE Ur Tricyclic Antidepressants Screen NEGATIVE NEGATIVE Urine Phencyclidine Screen NEGATIVE NEGATIVE Urine Amphetamines Screen NEGATIVE NEGATIVE Urine Methamphetamines Screen NEGATIVE NEGATIVE Urine Benzodiazepines Screen NEGATIVE NEGATIVE Urine Cocaine Screen NEGATIVE NEGATIVE Urine Cannabinoids Screen NEGATIVE NEGATIVE My Orders Orders - KY WILKINSON MD Comprehensive Metabolic Panel (08/14/21 09:45) Lipase (08/14/21 09:45) Ed Iv/Invasive Line Start (08/14/21 09:45) Cbc With Automated Diff (08/14/21 09:45) Drug Screen Stat (Urine) (08/14/21 09:45) Ua Culture If Indicated (08/14/21 09:45) Troponin I Fs (08/14/21 09:45) Covid 19 Inhouse Test (08/14/21 09:45) Manual Differential (08/14/21 09:51) Blood Culture (08/14/21 10:18) Lactic Acid Analyzer (08/14/21 10:18) Ed Iv/Invasive Line Start (08/14/21 10:19) Ns Iv 1000 Ml (Sodium Chloride 0.9%) (08/14/21 10:30) Chest 1 View Ap/Pa Only (08/14/21 10:31) Ct Abdomen/Pelvis Wo (08/14/21 09:45) Ceftriaxone 1 Gm Pre-Mix (Rocephin 1 Gm (08/14/21 11:30) Metronidazole 500mg/100ml Ivpb (Flagyl 5 (08/14/21 11:30) Medications Given in ED Current Medications Medications Dose Ordered Sig/Amy Route Start Time Stop Time Status Last Admin Dose Admin Ceftriaxone Sodium/Dextrose 50 ml @ 100 mls/hr ONCE ONCE IV 08/14/21 11:30 08/14/21 11:59 08/14/21 11:31 100 MLS/HR Vital Signs/I&O 08/14/21 09:35 Temp 35.5 Pulse 67 Resp 18 B/P (MAP) 131/71 (91) Pulse Ox 93 O2 Delivery Room Air Progress Progress Note : Progress Note - 1. ABDOMINAL PAIN: COLITIS - CT ABD & PELVIS: colitis, see report below - CBC: WBC is elevated: 15.1 with a left shift - Blood cultures x2 - Lactic acid: normal - COVID test sent - UA unremarkable - NS IVF bolus - Ceftriaxone 1gm and Flagyl iv 2. DEHYDRATION/ CLAY/ HYPONATREMIA: GENERALIZED WEAKNESS - s. Na is 130 - s. creatinine is elevated so did CT without contrast - NS IVF - Will admit to med surg, accepted by hospitalist Diagnostic Imaging Diagonstic Imaging: Xray, CT Plain Films/CT/US/NM/MRI: chest, abdomen Comments [facility]. [place], [place] NAME: KATHARINA BARRERA [facility] REC#: [id number] PT STATUS: REG ER : 1950 PHYSICIAN: KY WILKINSON MD ADMIT DATE: 08/14/21/ER FS Draft Date of Exam:08/14/21 CT ABDOMEN/PELVIS WO PROCEDURE: CT abdomen and pelvis without contrast. TECHNIQUE: Multiple contiguous axial images were obtained through the abdomen and pelvis without the use of intravenous contrast. Auto Exposure Controls were utilized during the CT exam to meet ALARA standards for radiation dose reduction. INDICATION: Nausea and vomiting and abdominal pain. No prior studies are available for comparison. FINDINGS: Lung bases are clear. Liver is unremarkable. Gallbladder is surgically absent. No biliary ductal dilatation is seen. The pancreas and spleen are unremarkable. No adrenal mass is detected. No renal calculi are seen. There appears to be a calcific density adjacent to the proximal right ureter consistent with a phlebolith. There is no hydronephrosis identified within either kidney. Aorta is calcified but nonaneurysmal. Bowel loops are normal caliber. There is no obstruction. There appears to be some wall thickening involving the distal aspect of the transverse colon, perhaps on the basis of a nonspecific colitis. There may be some mild wall thickening of the descending colon as well. No free fluid or fluid collection is identified. There appears to be fat-containing umbilical hernia. No herniated bowel loops are seen. Bladder is unremarkable. Uterus unremarkable. There is a cyst involving the right ovary measuring 3 cm. Bony structures are nonacute. IMPRESSION: 1. Nonspecific wall thickening of the transverse and descending colon, consistent with nonspecific colitis. No bowel obstruction is seen. 2. Fat-containing umbilical hernia. 3. 3 cm right ovarian cyst. Dictated on workstation # [id number] Dict: 08/14/21 1104 Trans: 08/14/21 1111 [id number] Interpreted by: ADONIS PAINTER MD Electronically signed by: [facility] [place] [place], [place] NAME: KATHARINA BARRERA [facility] REC#: [id number] PT STATUS: REG ER : 1950 PHYSICIAN: KY WILKINSON MD ADMIT DATE: 08/14/21/ER FS Draft Date of Exam:08/14/21 CHEST 1 VIEW AP/PA ONLY INDICATION: Nausea and vomiting with intermittent fever. EXAMINATION: Portable chest. FINDINGS: The lungs are well-aerated. No infiltrates are seen. There is mild calcified granulomatous disease. The heart is at the upper limits of normal. The aorta is atherosclerotic. No pulmonary edema. No pneumothorax or pleural effusion. IMPRESSION: No acute abnormality is noted. Dictated on workstation # [id number] Dict: 08/14/21 1041 Trans: 08/14/21 1043 [id number] Interpreted by: AYO MERINO MD Electronically signed by: Departure Communication (Admissions) Time/Spoke to Admitting Phy: 11:[address] Rogel will admit to Med surg Impression Primary Impression: Generalized weakness Additional Impressions: Acute colitis Dehydration Acute kidney injury Hyponatremia Disposition: 30 STILL A PATIENT Condition: Stable Admissions Decision to Admit Reason: Admit from ER (General) Decision to Admit/Date: Aug 14, 2021 Time/Decision to Admit Time: 11:20 Departure-Patient Inst. Referrals: BEENA JERONIMO MD (PCP) Primary Care Physician KY WILKINSON MD Aug 14, 2021 09:44
[2021-08-14 09:55] LABS: BASOPHILS # (AUTO) 0.1 10^3/uL (0.0-0.1); BASOPHILS % (AUTO) 0 % (0-10); EOSINOPHILS # (AUTO) 0.1 10^3/uL (0.0-0.3); EOSINOPHILS % (AUTO) 1 % (0-10); HEMATOCRIT 44 % (35-52); HEMOGLOBIN 15.1 g/dL (11.5-16.0); LYMPHOCYTES # (AUTO) 1.6 10^3/uL (1.0-4.0); LYMPHOCYTES % (AUTO) 10 % (12-44); MEAN CORPUSCULAR HEMOGLOBIN 30 pg (25-34); MEAN CORPUSCULAR HGB CONC 34 g/dL (32-36); MEAN CORPUSCULAR VOLUME 89 fL (80-99); MEAN PLATELET VOLUME 9.9 fL (9.0-12.2); MONOCYTES % (AUTO) 6 % (0-12); NEUTROPHILS # (AUTO) 12.3 10^3/uL (1.8-7.8); NEUTROPHILS % (AUTO) 82 % (42-75); PLATELET COUNT 304 10^3/uL (130-400); WHITE BLOOD COUNT 15.1 10^3/uL (4.3-11.0)
[2021-08-14 10:16] LABS: BAND NEUTROPHILS 1 %; EOSINOPHILS % (MANUAL) 1 %; LYMPHOCYTES % (MANUAL) 16 %; MONOCYTES % (MANUAL) 2 %; NEUTROPHILS % (MANUAL) 80 %; RBC MORPH NORMAL
[2021-08-14 10:24] LABS: CALCIUM 10.1 MG/DL (8.5-10.1); CREATININE SERUM 2.17 MG/DL (0.60-1.30); POTASSIUM 3.9 MMOL/L (3.6-5.0)
[2021-08-14 10:25] LABS: ALBUMIN 4.1 GM/DL (3.2-4.5); BILIRUBIN,TOTAL 0.7 MG/DL (0.1-1.0); TOTAL PROTEIN 7.3 GM/DL (6.4-8.2)
[2021-08-14] MEDS ORDERED: NS IV 1000 ML 1,000 ML IV SCH (10:30)
--- NOTE | 2021-08-14 10:43 | Diagnostic Imaging Report ---
INDICATION: Nausea and vomiting with intermittent fever. EXAMINATION: Portable chest. FINDINGS: The lungs are well-aerated. No infiltrates are seen. There is mild calcified granulomatous disease. The heart is at the upper limits of normal. The aorta is atherosclerotic. No pulmonary edema. No pneumothorax or pleural effusion. IMPRESSION: No acute abnormality is noted. Dictated by: Dictated on workstation # [id number]
--- NOTE | 2021-08-14 11:11 | Diagnostic Imaging Report ---
PROCEDURE: CT abdomen and pelvis without contrast. TECHNIQUE: Multiple contiguous axial images were obtained through the abdomen and pelvis without the use of intravenous contrast. Auto Exposure Controls were utilized during the CT exam to meet ALARA standards for radiation dose reduction. INDICATION: Nausea and vomiting and abdominal pain. No prior studies are available for comparison. FINDINGS: Lung bases are clear. Liver is unremarkable. Gallbladder is surgically absent. No biliary ductal dilatation is seen. The pancreas and spleen are unremarkable. No adrenal mass is detected. No renal calculi are seen. There appears to be a calcific density adjacent to the proximal right ureter consistent with a phlebolith. There is no hydronephrosis identified within either kidney. Aorta is calcified but nonaneurysmal. Bowel loops are normal caliber. There is no obstruction. There appears to be some wall thickening involving the distal aspect of the transverse colon, perhaps on the basis of a nonspecific colitis. There may be some mild wall thickening of the descending colon as well. No free fluid or fluid collection is identified. There appears to be fat-containing umbilical hernia. No herniated bowel loops are seen. Bladder is unremarkable. Uterus unremarkable. There is a cyst involving the right ovary measuring 3 cm. Bony structures are nonacute. IMPRESSION: 1. Nonspecific wall thickening of the transverse and descending colon, consistent with nonspecific colitis. No bowel obstruction is seen. 2. Fat-containing umbilical hernia. 3. 3 cm right ovarian cyst. Dictated by: Dictated on workstation # [id number]
[2021-08-14] MEDS ORDERED: metroNIDAZOLE 500MG/100ML IVPB 100 ML IV ONE (11:30)
[2021-08-14] MEDS ORDERED: cefTRIAXone 1 GM PRE-MIX 50 ML IV ONE (11:30)
[2021-08-14 11:38] LABS: BILIRUBIN,URINE NEGATIVE (NEGATIVE); CLARITY,URINE SL CLOUDY; COLOR,URINE YELLOW; GLUCOSE, URINE (UA) NEGATIVE (NEGATIVE); KETONES,URINE NEGATIVE (NEGATIVE); LEUKOCYTE ESTERASE ,URINE NEGATIVE (NEGATIVE); NITRITE,URINE NEGATIVE (NEGATIVE); PROTEIN,URINE 2+ (NEGATIVE)
[2021-08-14 11:51] LABS: AMORPHOUS SEDIMENT,UR FEW AMOR URATES /LPF; AMPHETAMINE SCREEN, URINE NEGATIVE (NEGATIVE); BACTERIA,URINE NEGATIVE /HPF; BARBITURATE SCREEN URINE NEGATIVE (NEGATIVE); BENZODIAZEPINES SCREEN URINE NEGATIVE (NEGATIVE); CALCIUM OXALATE CRYSTALS,UR FEW /LPF; CANNABINOID SCREEN, URINE NEGATIVE (NEGATIVE); COCAINE SCREEN URINE NEGATIVE (NEGATIVE); HYALINE CASTS, URINE 25-50 /LPF; METHADONE STAT NEGATIVE (NEGATIVE); OPIATE SCREEN URINE POSITIVE (NEGATIVE); OXYCODONE STAT NEGATIVE (NEGATIVE); PROPOXYPHENE STAT NEGATIVE (NEGATIVE); TRICYCLIC ANTIDEPRESSANTS SCRE NEGATIVE (NEGATIVE)
[2021-08-14 15:21] VITALS: BP 169/90
[2021-08-14] MEDS ORDERED: VIT1CAPS44 PO (16:00)
[2021-08-14] MEDS ORDERED: CHOL20003 PO (16:00)
[2021-08-14] MEDS ORDERED: CATHETER FLUSH 10 ML SYR IVP PRN (16:00)
[2021-08-14] MEDS ORDERED: METF-865 PO (16:00)
[2021-08-14] MEDS ORDERED: UBRO50TA PO (16:00)
[2021-08-14] MEDS ORDERED: LISI20TA26 PO (16:00)
[2021-08-14] MEDS ORDERED: HYDR-3820 PO (16:00)
[2021-08-14] MEDS ORDERED: ALPR0.5T7 PO (16:00)
[2021-08-14] MEDS ORDERED: CARV25TA PO (16:00)
[2021-08-14] MEDS ORDERED: ASPI325T32 PO (16:00)
[2021-08-14] MEDS ORDERED: ONDA4TAB11 PO (16:00)
[2021-08-14] MEDS: CIPROFLOXACIN IV 400MG/200ML 200 ML IV SCH (16:22)
[2021-08-14 16:32] VITALS: BP 169/90
[2021-08-14] MEDS ORDERED: RT-ALBUTEROL SULF 2.5 MG/3 ML PRE-MIX VIAL INH PRN (16:45)
[2021-08-14 19:07] VITALS: BP 120/79
[2021-08-14] MEDS: metroNIDAZOLE 500MG/100ML IVPB 100 ML IV SCH (20:26)
[2021-08-15 00:20] VITALS: BP 148/85
[2021-08-15] MEDS ORDERED: ONDANSETRON 4 MG/2 ML (SDV) Z0FRAN IVP PRN (01:30)
[2021-08-15] MEDS ORDERED: ONDANSETRON 4 MG (ZOFRAN) ORAL DISSOLVE TAB PO PRN ×2 (01:30)
[2021-08-15 03:58] VITALS: BP 135/78
[2021-08-15 06:30] LABS: BASOPHILS % (AUTO) 0 % (0-10); EOSINOPHILS # (AUTO) 0.3 10^3/uL (0.0-0.3); EOSINOPHILS % (AUTO) 2 % (0-10); HEMATOCRIT 40 % (35-52); HEMOGLOBIN 13.2 g/dL (11.5-16.0); LYMPHOCYTES # (AUTO) 1.5 10^3/uL (1.0-4.0); LYMPHOCYTES % (AUTO) 12 % (12-44); MEAN CORPUSCULAR HEMOGLOBIN 30 pg (25-34); MEAN CORPUSCULAR HGB CONC 33 g/dL (32-36); MEAN CORPUSCULAR VOLUME 91 fL (80-99); MEAN PLATELET VOLUME 10.5 fL (9.0-12.2); MONOCYTES # (AUTO) 1.2 10^3/uL (0.0-1.0); MONOCYTES % (AUTO) 10 % (0-12); NEUTROPHILS # (AUTO) 9.2 10^3/uL (1.8-7.8); NEUTROPHILS % (AUTO) 75 % (42-75); PLATELET COUNT 262 10^3/uL (130-400); WHITE BLOOD COUNT 12.2 10^3/uL (4.3-11.0)
[2021-08-15 06:48] LABS: ALBUMIN 3.4 GM/DL (3.2-4.5)
[2021-08-15 06:49] LABS: POTASSIUM 3.4 MMOL/L (3.6-5.0)
[2021-08-15 06:53] LABS: BILIRUBIN,TOTAL 0.6 MG/DL (0.1-1.0)
[2021-08-15 06:55] LABS: CREATININE SERUM 1.1 MG/DL (0.60-1.30)
[2021-08-15 07:55] VITALS: BP 130/81
[2021-08-15] MEDS ORDERED: PHARMACY TO DOSE SQ SCH (09:00)
[2021-08-15] MEDS ORDERED: ENOXAPARIN INJECTION 30 MG/0.3 ML SYR SC SCH (09:00)
[2021-08-15] MEDS: ENOXAPARIN 40 MG/0.4 ML (LOVENOX) SYR SC SCH (10:15)
[2021-08-15] MEDS: metroNIDAZOLE 500MG/100ML IVPB 100 ML IV SCH ×2 (10:16→20:36)
[2021-08-15 11:39] VITALS: BP 141/83
--- NOTE | 2021-08-15 13:49 | History & Physical ---
HPI History of Present Illness: 71 yo F that presented with worsening abdominal pain and fatigue. Patient states that she has been under evaluation for her abdominal pain for about a year. She has had multiple scopes that she reports as normal. States that her pain started getting worse about 1 weeks ago and then yesterday evening she was unable to tolerate her dinner and she felt more fatigued. Denies any blood in her stool. Had some mild nausea but denies vomiting. No fevers or chills. No recent medications changes and other then the abominal pain she has been feeling at her normal baseline. Source: patient Exam Limitations: no limitations Date seen by provider: Aug 15, 2021 Time Seen by Provider: 11:15 Attending Physician Tree Krishnan MD PCP Admitting Physician: Aniya Rogel MD Attending Physician: Aniya Rogel MD Consult Date of Admission Aug 14, 2021 at 13:30 Home Medications Home Medications Reviewed patient Home Medication Reconciliation performed by pharmacy medication reconciliations fork lift technician and/or nursing. Patients Allergies have been reviewed. Allergies Coded Allergies: oxycodone (Verified Allergy, Mild, ITCHING, 04/11/19) codeine (Verified Allergy, Unknown, 03/13/20) JBG-Lttywg-Rvjesl Hx Patient Social History Living Status: Living home independently 2nd Hand Smoke Exposure: No Recent Hopitalizations: No Alcohol Use?: No Have you traveled recently?: No Immunizations Up To Date COVID19 Vaccine Chief Executive: Moderna Past Medical History CAD NIDDM Asthma Migraine NORRIS Chronic abdominal pain Family Medical History Significant Family History: No Pertinent Family Hx Review of Systems (CHC) Constitutional: No chills, No fever; malaise EENTM: no symptoms reported; No mouth pain, No nose congestion Respiratory: no symptoms reported; No cough, No dyspnea on exertion, No short of breath Cardiovascular: no symptoms reported; No chest pain, No edema, No palpitations Gastrointestinal: abdominal pain; No constipation, No diarrhea; loss of appetite, nausea; No vomiting Genitourinary: no symptoms reported; No dysuria, No frequency, No hematuria : No Musculoskeletal: no symptoms reported; No back pain, No joint pain, No muscle pain Skin: no symptoms reported Psychiatric/Neurological: No Symptoms Reported Reviewed Test Results Reviewed Test Results Lab Laboratory Tests Test 08/15/21 05:30 Range/Units White Blood Count 12.2 H 4.3-11.0 10^3/uL Red Blood Count 4.38 3.80-5.11 10^6/uL Hemoglobin 13.2 11.5-16.0 g/dL Hematocrit 40 35-52 % Mean Corpuscular Volume 91 80-99 fL Mean Corpuscular Hemoglobin 30 25-34 pg Mean Corpuscular Hemoglobin Concent 33 32-36 g/dL Red Cell Distribution Width 12.4 10.0-14.5 % Platelet Count 262 130-400 10^3/uL Mean Platelet Volume 10.5 9.0-12.2 fL Immature Granulocyte % (Auto) 0 % Neutrophils (%) (Auto) 75 42-75 % Lymphocytes (%) (Auto) 12 12-44 % Monocytes (%) (Auto) 10 0-12 % Eosinophils (%) (Auto) 2 0-10 % Basophils (%) (Auto) 0 0-10 % Neutrophils # (Auto) 9.2 H 1.8-7.8 10^3/uL Lymphocytes # (Auto) 1.5 1.0-4.0 10^3/uL Monocytes # (Auto) 1.2 H 0.0-1.0 10^3/uL Eosinophils # (Auto) 0.3 0.0-0.3 10^3/uL Basophils # (Auto) 0.0 0.0-0.1 10^3/uL Immature Granulocyte # (Auto) 0.0 0.0-0.1 10^3/uL Sodium Level 134 L 135-145 MMOL/L Potassium Level 3.4 L 3.6-5.0 MMOL/L Chloride Level 96 L 98-107 MMOL/L Carbon Dioxide Level 26 21-32 MMOL/L Anion Gap 12 5-14 MMOL/L Blood Urea Nitrogen 21 H 7-18 MG/DL Creatinine 1.10 0.60-1.30 MG/DL Estimat Glomerular Filtration Rate 54 BUN/Creatinine Ratio 19 Glucose Level 133 H 70-105 MG/DL Calcium Level 9.0 8.5-10.1 MG/DL Corrected Calcium 9.5 8.5-10.1 MG/DL Total Bilirubin 0.6 0.1-1.0 MG/DL Aspartate Amino Transf (AST/SGOT) 20 5-34 U/L Alanine Aminotransferase (ALT/SGPT) 15 0-55 U/L Alkaline Phosphatase 74 40-136 U/L Total Protein 6.0 L 6.4-8.2 GM/DL Albumin 3.4 3.2-4.5 GM/DL Physical Exam-([facility]) Physical Exam Vital Signs VS - Last 72 Hours, by Label 08/14/21 08/14/21 08/14/21 08/14/21 09:35 12:43 14:00 15:21 Temp 35.5 36.8 35.8 Pulse 67 84 72 Resp 18 16 20 B/P (MAP) 131/71 (91) 125/72 169/90 (116) Pulse Ox 93 98 97 O2 Delivery Room Air Room Air Room Air Nasal Cannula O2 Flow Rate 2.00 08/14/21 08/14/21 08/14/21 08/15/21 16:32 19:07 20:00 00:20 Temp 35.8 36.0 36.2 Pulse 72 78 68 Resp 20 20 B/P (MAP) 120/79 (93) 148/85 (106) Pulse Ox 93 94 98 O2 Delivery Room Air Room Air Nasal Cannula O2 Flow Rate 2.00 FiO2 21 08/15/21 08/15/21 08/15/21 08/15/21 03:58 07:20 07:55 08:00 Temp 36.8 36.6 Pulse 81 78 Resp 20 18 B/P (MAP) 135/78 (97) 130/81 (97) Pulse Ox 98 91 91 O2 Delivery Nasal Cannula Room Air Nasal Cannula Room Air O2 Flow Rate 2.00 0.00 2.00 08/15/21 11:39 Temp 36.4 Pulse 79 Resp 18 B/P (MAP) 141/83 (102) Pulse Ox 94 O2 Delivery Nasal Cannula O2 Flow Rate 2.00 Capillary Refill : Less Than 3 Seconds General Appearance: WD/WN, no apparent distress HEENT: PERRL/EOMI Neck: non-tender, full range of motion, supple Respiratory: chest non-tender, lungs clear, normal breath sounds, no respiratory distress Cardiovascular: normal peripheral pulses, regular rate, rhythm, no edema, no murmur Gastrointestinal: normal bowel sounds, soft, other (RLQ ttp, no rebound or gaurding) Back: no CVA tenderness, no vertebral tenderness Extremities: normal range of motion, non-tender, no pedal edema, no calf tenderness, normal capillary refill Neurologic/Psychiatric: petroleum analyst II-XII nml as tested, no motor/sensory deficits, alert, normal mood/affect, oriented x 3 Skin: normal color, warm/dry Lymphatic: no adenopathy Assessment/Plan Assessment/Plan Admission Status: Inpatient Order (span 2 midnights) Reason for Inpatient Admission: Requiring IV antibiotics (1) Acute colitis Status: Acute Assessment & Plan: - Patient admitted NPO, Started on Cipro/Flaygl, Will advance diet as tolerated (2) Acute kidney injury Status: Resolved Assessment & Plan: - Resolved this AM (3) Right lower quadrant abdominal pain (4) CAD (coronary artery disease) Status: Chronic Assessment & Plan: - Restart home meds Qualifiers: Qualified Codes: I25.10 - Atherosclerotic heart disease of [place] coronary artery without angina pectoris (5) Non-insulin dependent diabetes mellitus Status: Chronic Assessment & Plan: - SSI, Accuchecks (6) Ovarian cyst Status: Acute Assessment & Plan: - May need outpatient f.u Qualifiers: Qualified Codes: N83.202 - Unspecified ovarian cyst, left side ANIYA ROGEL MD Aug 15, 2021 13:49
[2021-08-15 15:24] VITALS: BP 151/86
[2021-08-15] MEDS: CIPROFLOXACIN IV 400MG/200ML 200 ML IV SCH (17:48)
[2021-08-15 19:33] VITALS: BP 136/61
[2021-08-15] MEDS ORDERED: PANTOPRAZOLE 40 MG (PROTONIX) TAB PO SCH (21:00)
[2021-08-15] MEDS ORDERED: NON-FORMULARY MEDICATION 1 EA EA (Carvedilol 25 MG) PO SCH (21:00)
[2021-08-15] MEDS ORDERED: NON-FORMULARY MEDICATION 1 EA EA (Omeprazole 40 MG) PO SCH (21:00)
[2021-08-16 00:18] VITALS: BP 112/72
[2021-08-16 04:04] VITALS: BP 141/85
[2021-08-16 06:06] LABS: BASOPHILS # (AUTO) 0.1 10^3/uL (0.0-0.1); BASOPHILS % (AUTO) 1 % (0-10); EOSINOPHILS # (AUTO) 0.4 10^3/uL (0.0-0.3); EOSINOPHILS % (AUTO) 4 % (0-10); HEMATOCRIT 40 % (35-52); HEMOGLOBIN 13.2 g/dL (11.5-16.0); LYMPHOCYTES # (AUTO) 1.9 10^3/uL (1.0-4.0); LYMPHOCYTES % (AUTO) 20 % (12-44); MEAN CORPUSCULAR HEMOGLOBIN 30 pg (25-34); MEAN CORPUSCULAR HGB CONC 33 g/dL (32-36); MEAN CORPUSCULAR VOLUME 91 fL (80-99); MONOCYTES # (AUTO) 1.1 10^3/uL (0.0-1.0); MONOCYTES % (AUTO) 12 % (0-12); NEUTROPHILS % (AUTO) 63 % (42-75); PLATELET COUNT 252 10^3/uL (130-400); WHITE BLOOD COUNT 9.5 10^3/uL (4.3-11.0)
[2021-08-16 06:27] LABS: ALBUMIN 3.3 GM/DL (3.2-4.5); POTASSIUM 3.4 MMOL/L (3.6-5.0)
[2021-08-16 06:28] LABS: CALCIUM 9.3 MG/DL (8.5-10.1)
[2021-08-16 06:29] LABS: TOTAL PROTEIN 5.9 GM/DL (6.4-8.2)
[2021-08-16 06:31] LABS: BILIRUBIN,TOTAL 0.7 MG/DL (0.1-1.0)
[2021-08-16 06:33] LABS: CREATININE SERUM 0.83 MG/DL (0.60-1.30)
[2021-08-16 08:02] VITALS: BP 126/84
[2021-08-16] MEDS: metroNIDAZOLE 500MG/100ML IVPB 100 ML IV SCH (08:21)
[2021-08-16] MEDS: ENOXAPARIN 40 MG/0.4 ML (LOVENOX) SYR SC SCH (08:22)
[2021-08-16] MEDS ORDERED: lisINopril 20 MG (PRINIVIL) TABLET PO SCH (09:00)
--- NOTE | 2021-08-16 10:32 | Progress Note - Hospitalist ---
Subjective HPI/CC On Admission Date Seen by Provider: Aug 16, 2021 Time Seen by Provider: 11:00 Focused Exam Lactate Level 08/14/21 10:14: Lactic Acid Level 1.72 Objective Exam Vital Signs Vital Signs Date Time Temp Pulse Resp B/P (MAP) Pulse Ox O2 Delivery O2 Flow Rate FiO2 08/16/21 08:02 36.4 73 18 126/84 (98) 93 Nasal Cannula 1.00 08/14/21 16:32 21 Capillary Refill : Less Than 3 Seconds Results/Procedures Lab Laboratory Tests 08/16/21 05:22 Patient resulted labs reviewed. ROSA RODRIGUEZ DO Aug 16, 2021 10:32
[2021-08-16] MEDS ORDERED: METR-145 PO (11:13)
[2021-08-16] MEDS ORDERED: CIPR500T5 PO (11:13)
--- NOTE | 2021-08-16 11:14 | Discharge Summary ---
Discharge Summary Hospital Course Was the Problem List Reviewed?: Yes Problems/Dx: (1) Acute colitis Status: Acute (2) Acute kidney injury Status: Resolved Hospital Course Date of Admission: Aug 14, 2021 at 13:30 Admission Diagnosis : Family Physician/Provider: Tree Krishnan MD Date of Discharge: 08/16/21 Discharge Diagnosis: acute colitis, CLAY Hospital Course: Pt had a brief hospital course after she was admitted for acute kidney injury, dehydration, and acute colitis. Pt was placed on Cipro and Flagyl. IV fluids resolved the acute kidney injury. She was set for discharge. She will have close follow up with her PCP, Dr. Krishnan. Labs and Pending Lab Test: Laboratory Tests 08/16/21 05:22: White Blood Count 9.5, Red Blood Count 4.38, Hemoglobin 13.2, Hematocrit 40, Mean Corpuscular Volume 91, Mean Corpuscular Hemoglobin 30, Mean Corpuscular Hemoglobin Concent 33, Red Cell Distribution Width 12.4, Platelet Count 252, Mean Platelet Volume 10.0, Immature Granulocyte % (Auto) 0, Neutrophils (%) (Auto) 63, Lymphocytes (%) (Auto) 20, Monocytes (%) (Auto) 12, Eosinophils (%) (Auto) 4, Basophils (%) (Auto) 1, Neutrophils # (Auto) 6.0, Lymphocytes # (Auto) 1.9, Monocytes # (Auto) 1.1H, Eosinophils # (Auto) 0.4H, Basophils # (Auto) 0.1, Immature Granulocyte # (Auto) 0.0, Sodium Level 136, Potassium Level 3.4L, Chloride Level 99, Carbon Dioxide Level 27, Anion Gap 10, Blood Urea Nitrogen 13, Creatinine 0.83, Estimat Glomerular Filtration Rate 75, BUN/Creatinine Ratio 16, Glucose Level 131H, Calcium Level 9.3, Corrected Calcium 9.9, Total Bilirubin 0.7, Aspartate Amino Transf (AST/SGOT) 17, Alanine Aminotransferase (ALT/SGPT) 12, Alkaline Phosphatase 75, Total Protein 5.9L, Albumin 3.3 Microbiology 08/14/21 Blood Culture - Preliminary, Resulted No growth Home Meds Active Metronidazole 500 Mg Tablet 500 Mg PO TID Ciprofloxacin HCl 500 Mg Tablet 500 Mg PO BID Reported Aspirin EC (Aspirin) 325 Mg Tablet. 325 Mg PO DAILY Vitamin D3 (Cholecalciferol (Vitamin D3)) 50 Mcg (2000 Unit) Capsule 50 Mcg PO DAILY Preservision Areds 2 Softgel (Vit C/E/Zn/Coppr/Lutein/Zeaxan) 250MG-90MG Capsule 1 Each PO DAILY Lisinopril 20 Mg Tablet 20 Mg PO DAILY LAST FILLED 04-13-2021 #90/90 DAY SUPPLY Carvedilol 25 Mg Tablet 25 Mg PO BID Ubrelvy (Ubrogepant) 50 Mg Tablet 50 Mg PO DAILY PRN Ondansetron Odt (Ondansetron) 4 Mg Tab.rapdis 4 Mg PO Q8H PRN Alprazolam 0.5 Mg Tablet 0.5 Mg PO DAILY PRN Hydrocodone-Acetamin 10-325 mg (Hydrocodone/Acetaminophen) 10 Mg-325 Mg Tablet 1 Ea PO BID PRN Metformin HCl ER (Metformin HCl) 500 Mg Tab.er.24h 500 Mg PO DAILY Proair Hfa (Albuterol Sulfate) 1 Puff Puff 2 Puff IH Q4H PRN Omeprazole 40 Mg Capsule.dr 40 Mg PO HS Simvastatin 20 Mg Tablet 20 Mg PO DAILY Assessment/Pt Instructions PCP 1 week Discharge Planning: <30 minutes discharge planning Discharge Instructions Discharge Diet: Liquid Diet, Soft Diet, Low Residue Activity as Tolerated: Yes Discharge Physical Examination Vital Signs Vital Signs Date Time Temp Pulse Resp B/P (MAP) Pulse Ox O2 Delivery O2 Flow Rate FiO2 08/16/21 08:02 36.4 73 18 126/84 (98) 93 Nasal Cannula 1.00 08/14/21 16:32 21 General Appearance: No Apparent Distress, WD/WN, Chronically ill Allergies: Coded Allergies: oxycodone (Verified Allergy, Mild, ITCHING, 04/11/19) codeine (Verified Allergy, Unknown, 03/13/20) Discharge Summary Date of Admission Aug 14, 2021 at 13:30 Date of Discharge Discharge Date: Aug 16, 2021 ROSA RODRIGUEZ DO Aug 16, 2021 11:14
== END 2021-08-16 12:25 | disposition home or self-care (01) | DRG 683 ==
LOC: EDUNIT# 09:32 → ER FS 09:33 → 4TH 13:30
PROVIDERS: ADMIT Family Medicine; ATTEND Internal Medicine
DX: N17.9 Acute kidney failure, unspecified (principal); E87.1 Hypo-osmolality and hyponatremia; K58.0 Irritable bowel syndrome with diarrhea; E86.0 Dehydration; N83.201 Unspecified ovarian cyst, right side; I25.10 Atherosclerotic heart disease of native coronary artery without angina pectoris; E11.9 Type 2 diabetes mellitus without complications; J45.909 Unspecified asthma, uncomplicated; E78.00 Pure hypercholesterolemia, unspecified; I10 Essential (primary) hypertension; K21.9 Gastro-esophageal reflux disease without esophagitis; M54.9 Dorsalgia, unspecified; F41.9 Anxiety disorder, unspecified; Z20.822 Contact with and (suspected) exposure to COVID-19; I25.2 Old myocardial infarction; Z95.5 Presence of coronary angioplasty implant and graft; Z96.652 Presence of left artificial knee joint; Z88.5 Allergy status to narcotic agent; Z79.84 Long term (current) use of oral hypoglycemic drugs; Z79.1 Long term (current) use of non-steroidal anti-inflammatories (NSAID); Z79.82 Long term (current) use of aspirin
CPT/HCPCS: 36415; 51702; 71045; 74176; 80053; 80306; 81000; 83605; 83690; 84484; 85007; 85025; 85027; 87040; 87636; 94760; 94761

== ENCOUNTER → 2021-09-24 | Outpatient (CLI) | payer MEDICARE, OTHER ==
[~2021-09-24] MED LIST changes: +ALPR0.5T7 PO; +CARV25TA PO; +CATHETER FLUSH 10 ML SYR IVP PRN; +CHOL20003 PO; +CIPR500T5 PO; +HYDR-3820 PO; +METF-865 PO; +METR-145 PO; +REGADENOSON 0.4 MG/5 ML SYR (LEXISCAN) IV ONE; +UBRO50TA PO; +VIT1CAPS44 PO
[2021-09-24 13:08] VITALS: BP 221/108
--- NOTE | 2021-09-25 19:21 | STRESS TEST ---
DATE OF SERVICE: 09/24/2021 RESTING AND POST REGADENOSON TECHNETIUM-99M TETROFOSMIN SPECT CT IMAGING ORDERING PHYSICIAN: Daina Marcelino APRN PRIMARY PHYSICIAN: Dr. Krsihnan. CLINICAL DIAGNOSIS: Chest pain. Baseline images were carried out after injection of 10.24 mCi of technetium-99m Tetrofosmin. This was followed by 0.4 mg regadenoson and 30.3 mCi of technetium-99m Tetrofosmin for stress imaging. The electrocardiogram showed sinus rhythm with right bundle branch block. The electrocardiogram did not change significantly with regadenoson infusion. The patient noted some headache and nausea following regadenoson infusion, which resolved in a few minutes. Review of images at rest and following stress does not indicate any significant perfusion defects consistent with myocardial ischemia or infarction. Gated images show normal to hyperdynamic left ventricular systolic function with normal regional wall motion. Left ventricular ejection fraction is calculated to be 86%. CONCLUSIONS: 1. No evidence of any significant myocardial ischemia or infarction study. 2. Normal regional wall motion. 3. Normal to hyperdynamic left ventricular systolic function with a calculated ejection fraction of 86%. Job ID: [id number] DocumentID: [id number] Dictated Date: 09/25/2021 15:46:17 Senior Unix Administrator Date: 09/25/2021 19:21:01 Dictated By: ELBERT HOUGH MD, MA, FACP, FACC,
== END ==
LOC: CARD 10:30
PROVIDERS: ATTEND Nurse Practitioner Family
DX: R07.89 Other chest pain (principal)
CPT/HCPCS: 78452; 93017; 93306; A9502

== ENCOUNTER 2021-09-28 19:25 | Emergency (ER) | payer MEDICARE, OTHER ==
[~2021-09-28] VITALS: Ht 152.4 cm; Wt 92.9 kg
[~2021-09-28 19:25] MED LIST changes: -CATHETER FLUSH 10 ML SYR IVP PRN; -REGADENOSON 0.4 MG/5 ML SYR (LEXISCAN) IV ONE
[2021-09-28] MEDS ORDERED: ONDANSETRON 4 MG/2 ML (SDV) Z0FRAN IVP ONE (20:45)
[2021-09-28] MEDS ORDERED: NS IV 1000 ML 1,000 ML IV SCH (20:45)
--- NOTE | 2021-09-28 20:57 | Diagnostic Imaging Report ---
EXAMINATION: CT abdomen and pelvis without contrast. TECHNIQUE: Multiple contiguous axial images were obtained through the abdomen and pelvis without the use of intravenous contrast. All CT scans use one or more of the following dose optimizing techniques: automated exposure control, MA and/or KvP adjustment based on patient size and exam type or iterative reconstruction. HISTORY: Nausea and vomiting. COMPARISON: 08/14/2021. FINDINGS: Limited views of the lower thorax are unremarkable. Liver surface is nodular consistent with cirrhosis. No focal liver lesion is seen. There is no biliary ductal dilation. Gallbladder is surgically absent. Pancreas is normal. Spleen is normal. Adrenal glands are normal. The kidneys are normal. There is no hydronephrosis. Urinary bladder is normal. There is a stable 3.0 cm cyst in the right adnexa. Bowel is normal in caliber without obstruction or inflammation. There is a fat-containing ventral abdominal hernia. No free fluid or air. No abdominal or pelvic lymphadenopathy. Aorta is normal in caliber without aneurysm. There are no suspicious osseus lesions. IMPRESSION: Cirrhotic liver without focal lesion. Dictated by: Dictated on workstation # [id number]
[2021-09-28 21:06] LABS: BILIRUBIN,URINE NEGATIVE (NEGATIVE); CLARITY,URINE CLEAR; COLOR,URINE YELLOW; GLUCOSE, URINE (UA) NEGATIVE (NEGATIVE); KETONES,URINE NEGATIVE (NEGATIVE); LEUKOCYTE ESTERASE ,URINE 1+ (NEGATIVE); NITRITE,URINE NEGATIVE (NEGATIVE); PROTEIN,URINE 1+ (NEGATIVE)
--- NOTE | 2021-09-28 21:09 | ED Abdominal Pain ---
General Chief Complaint: General Problems/Pain Stated Complaint: NAUSEA/VOMITING/WEAKNESS Nursing Triage Note: PT presents with generalized weakness, hx of yeast infection, feeling dehdrated, fuzzy in the head and nausea. Source of Information: Patient Exam Limitations: No Limitations History of Present Illness Date Seen by Provider: Sep 28, 2021 Time Seen by Provider: 20:23 Initial Comments 71-year-old female patient with history of arthritis, chronic diarrhea, diabetes mellitus, GERD, chronic back pain, hypertension, hyperlipidemia, coronary artery disease, migraine headache and asthma complaining of episode of nausea and vomiting and generalized weakness for the last 2 days. Patient states she had outpatient cardiac evaluation 3 days ago at hospital and had 2 episodes of diarrhea 3 days ago and since yesterday has had episodes of nonbloody vomiting after eating and drinking. Patient states she had cramping abdominal pain that resolved today. Patient complaining of decrease of urine output, myalgia and generalized weakness and states she had history of kidney failure because of dehydration. Patient denies sick contacts, chest pain, shortness of breath, fever and chills, sore throat and earache. Allergies and Home Medications Allergies Coded Allergies: oxycodone (Verified Allergy, Mild, ITCHING, 04/11/19) codeine (Verified Allergy, Unknown, 03/13/20) Patient Home Medication List Home Medication List Reviewed: Yes Albuterol Sulfate (Proair Hfa) 1 Puff Puff, 2 PUFF IH Q4H PRN for SHORTNESS OF BREATH, (Reported) Entered as Reported by: ZENIA PABON on 10/28/18 0920 Alprazolam (Alprazolam) 0.5 Mg Tablet, 0.5 MG PO DAILY PRN for ANXIETY, (Reported) Entered as Reported by: ZENIA PABON on 08/14/21 1600 Aspirin (Aspirin EC) 325 Mg Tablet.dr, 325 MG PO DAILY, (Reported) Entered as Reported by: ZENIA PABON on 08/14/21 1600 Carvedilol (Carvedilol) 25 Mg Tablet, 25 MG PO BID, (Reported) Entered as Reported by: ZENIA PABON on 08/14/21 1600 Cholecalciferol (Vitamin D3) (Vitamin D3) 50 Mcg (2000 Unit) Capsule, 50 MCG PO DAILY, (Reported) Entered as Reported by: ZENIA PABON on 6/8/22 1600 Ciprofloxacin HCl (Ciprofloxacin HCl) 500 Mg Tablet, 500 MG PO BID Prescribed by: ROSA RODRIGUEZ on 08/16/21 111 Hydrocodone/Acetaminophen (Hydrocodone-Acetamin 10-325 mg) 10 Mg-325 Mg Tablet, 1 EA PO BID PRN for PAIN-MODERATE (5-7), (Reported) Entered as Reported by: ZENIA PABON on 08/14/211599 Lisinopril (Lisinopril) 20 Mg Tablet, 20 MG PO DAILY, (Reported) Entered as Reported by: ZENIA PABON on 08/14/211599 Metformin HCl (Metformin HCl ER) 500 Mg Tab.er.24h, 500 MG PO DAILY, (Reported) Entered as Reported by: ZENIA PABON on 08/14/211599 Metronidazole (Metronidazole) 500 Mg Tablet, 500 MG PO TID Prescribed by: ROSA RODRIGUEZ on 08/16/21 111 Omeprazole (Omeprazole) 40 Mg Capsule.dr, 40 MG PO HS, (Reported) Entered as Reported by: ZENIA PABON on 10/28/18 09 Ondansetron (Ondansetron Odt) 4 Mg Tab.rapdis, 4 MG PO Q8H PRN for NAUSEA/VOMITING-1ST LINE, (Reported) Entered as Reported by: ZENIA PABON on 08/14/211599 Ondansetron (Ondansetron Odt) 4 Mg Tab.rapdis, 4 MG PO TID PRN for NAUSEA-1ST LINE Prescribed by: Holly longo on 09/28/212218 Simvastatin (Simvastatin) 20 Mg Tablet, 20 MG PO DAILY, (Reported) Entered as Reported by: ZENIA PABON on 10/28/18 09 Ubrogepant (Ubrelvy) 50 Mg Tablet, 50 MG PO DAILY PRN for MIGRAINE, (Reported) Entered as Reported by: ZENIA PABON on 08/14/211599 Vit C/E/Zn/Coppr/Lutein/Zeaxan (Preservision Areds 2 Softgel) 250MG-90MG Capsule, 1 EACH PO DAILY, (Reported) Entered as Reported by: ZENIA PABON on 08/14/211599 Review of Systems Review of Systems Constitutional: see HPI EENTM: No Symptoms Reported Respiratory: No Symptoms Reported Cardiovascular: No Symptoms Reported Gastrointestinal: See HPI Genitourinary: See HPI Musculoskeletal: see HPI Skin: no symptoms reported Psychiatric/Neurological: No Symptoms Reported Endocrine: No Symptoms Reported Hematologic/Lymphatic: No Symptoms Reported All Other Systems Reviewed Negative Unless Noted: Yes Past Utcjuwd-Awoclx-Sgeker Hx Immunizations Up To Date PED Vaccines UTD: No Seasonal Allergies Seasonal Allergies: Yes (POSSIBLY MILD) Past Medical History Surgeries: Yes (L TKR, L WRIST) Orthopedic Respiratory: Yes (O2 2L AT NIGHT) Asthma Currently Using CPAP: No Currently Using BIPAP: No Cardiac: Yes (STENTS-2007) Coronary Artery Disease, Heart Attack, High Cholesterol, Hypertension Neurological: Yes Headaches /Migraines Sexually Transmitted Disease: No HIV/AIDS: No Genitourinary: No Gastrointestinal: Yes Gastroesophageal Reflux, Chronic Diarrhea Musculoskeletal: Yes (KNEES/HANDS) Arthritis, Chronic Back Pain Endocrine: Yes Diabetes, Non-Insulin dep HEENT: Yes (READING GLASSES) Loss of Vision: Denies Hearing Impairment: Denies Cancer: No Psychosocial: Yes Anxiety Integumentary: Yes (BACTERIAL INFECTION OF SKIN JAN 2019) Blood Disorders: No Adverse Reaction/Blood Tranf: No (HAS HAD BLOOD WITH NO REACTION) Family Medical History No Pertinent Family Hx Physical Exam Vital Signs Vital Signs - First Documented 09/28/21 20:06 Temp 35.4 Pulse 64 Resp 18 B/P (MAP) 171/74 (106) Capillary Refill : Less Than 3 Seconds Height/Weight/BMI Height: 5'0.00" Weight: 252lbs. 0.0oz. 114.584775ce; 39.00 BMI Method: General Appearance: mild distress, obese (Morbidly) HEENT: PERRL/EOMI, normal ENT inspection, pharynx normal Neck: non-tender, full range of motion Respiratory: chest non-tender, lungs clear, normal breath sounds, no respiratory distress Cardiovascular: normal peripheral pulses, regular rate, rhythm, no edema, no gallop Gastrointestinal: normal bowel sounds, non tender, soft, no organomegaly, no pulsatile mass Extremities: normal range of motion, non-tender, no pedal edema Back: normal inspection Neurologic/Psychiatric: no motor/sensory deficits, alert Skin: normal color, warm/dry Progress/Results/Core Measures Results/Orders Lab Results Laboratory Tests Test 09/28/21 20:50 09/28/21 20:57 09/28/21 21:30 Range/Units Urine Color YELLOW Urine Clarity CLEAR Urine pH 7.0 5-9 Urine Specific [place] 1.010 L 1.016-1.022 Urine Protein 1+ H NEGATIVE Urine Glucose (UA) NEGATIVE NEGATIVE Urine Ketones NEGATIVE NEGATIVE Urine Nitrite NEGATIVE NEGATIVE Urine Bilirubin NEGATIVE NEGATIVE Urine Urobilinogen 0.2 < = 1.0 MG/DL Urine Leukocyte Esterase 1+ H NEGATIVE Urine RBC (Auto) NEGATIVE NEGATIVE Urine RBC NONE /HPF Urine WBC 50-100 H /HPF Urine Squamous Epithelial Cells 25-50 H /HPF Urine Crystals NONE /LPF Urine Bacteria MODERATE H /HPF Urine Casts NONE /LPF Urine Mucus NEGATIVE /LPF Urine Culture Indicated NO SARS-CoV-2 RNA (RT-PCR) Detected H Not Detecte White Blood Count 9.9 4.3-11.0 10^3/uL Red Blood Count 4.21 3.80-5.11 10^6/uL Hemoglobin 12.8 11.5-16.0 g/dL Hematocrit 38 35-52 % Mean Corpuscular Volume 90 80-99 fL Mean Corpuscular Hemoglobin 30 25-34 pg Mean Corpuscular Hemoglobin Concent 34 32-36 g/dL Red Cell Distribution Width 12.8 10.0-14.5 % Platelet Count 234 130-400 10^3/uL Mean Platelet Volume 10.0 9.0-12.2 fL Immature Granulocyte % (Auto) 0 % Neutrophils (%) (Auto) 72 42-75 % Lymphocytes (%) (Auto) 16 12-44 % Monocytes (%) (Auto) 9 0-12 % Eosinophils (%) (Auto) 2 0-10 % Basophils (%) (Auto) 1 0-10 % Neutrophils # (Auto) 7.1 1.8-7.8 10^3/uL Lymphocytes # (Auto) 1.6 1.0-4.0 10^3/uL Monocytes # (Auto) 0.8 0.0-1.0 10^3/uL Eosinophils # (Auto) 0.2 0.0-0.3 10^3/uL Basophils # (Auto) 0.1 0.0-0.1 10^3/uL Immature Granulocyte # (Auto) 0.0 0.0-0.1 10^3/uL Sodium Level 137 135-145 MMOL/L Potassium Level 3.8 3.6-5.0 MMOL/L Chloride Level 101 98-107 MMOL/L Carbon Dioxide Level 28 21-32 MMOL/L Anion Gap 8 5-14 MMOL/L Blood Urea Nitrogen 9 7-18 MG/DL Creatinine 0.74 0.60-1.30 MG/DL Estimat Glomerular Filtration Rate 86 BUN/Creatinine Ratio 12 Glucose Level 137 H 70-105 MG/DL Calcium Level 9.6 8.5-10.1 MG/DL Corrected Calcium 10.0 8.5-10.1 MG/DL Total Bilirubin 0.5 0.1-1.0 MG/DL Aspartate Amino Transf (AST/SGOT) 15 5-34 U/L Alanine Aminotransferase (ALT/SGPT) 9 0-55 U/L Alkaline Phosphatase 69 40-136 U/L Total Protein 6.3 L 6.4-8.2 GM/DL Albumin 3.5 3.2-4.5 GM/DL Lipase 15 8-78 U/L My Orders Orders - HOLLY LONGO MD Comprehensive Metabolic Panel (09/28/21 20:31) Lipase (09/28/21 20:31) Ua Culture If Indicated (09/28/21 20:31) Cbc With Automated Diff (09/28/21 20:31) Ct Abdomen/Pelvis Wo (09/28/21 20:31) Ondansetron Injection (Zofran Injectio (09/28/21 20:45) Ns Iv 1000 Ml (Sodium Chloride 0.9%) (09/28/21 20:45) Covid 19 Inhouse Test (09/28/21 20:31) Rx-Nirmatrelvir/Ritonavir(Eua) (Rx-Paxlo (09/28/21 22:15) Rx-Ondansetron Po (Rx-Zofran Po) (09/28/21 22:02) Medications Given in ED Current Medications Medications Dose Ordered Sig/Amy Route Start Time Stop Time Status Last Admin Dose Admin Ondansetron HCl 4 mg ONCE ONCE IVP 09/28/21 20:45 09/28/21 20:46 DC 09/28/21 21:37 4 MG Vital Signs/I&O 09/28/21 20:06 Temp 35.4 Pulse 64 Resp 18 B/P (MAP) 171/74 (106) Blood Pressure Mean: 106 Progress Progress Note : Progress Note Evaluation of patient in ER showed 71-year-old female patient with history of recent outpatient negative cardiac evaluation complaining of diarrhea and abdominal pain and vomiting and generalized weakness and myalgia without fever and other symptoms. Patient had unremarkable physical exam and vital signs. Labs showed unremarkable CBC and CMP except for low protein. UA was contaminated. CT abdomen pelvis did not show acute finding except for cirrhosis. Patient treated with IV fluid and Zofran and felt a lot better. COVID test was positive and Paxil with was dispensed. Plan to discharge patient home with diagnosis of COVID infection with gastroenteritis. Prescription for Zofran was given and patient advised to take liquid diet for the next [address] Read Date: Sep 28, 2021 CT Results/Progress Notes CT abdomen pelvis without contrast interpreted by radiologist and reviewed by me and showed: NAME: KATHARINA BARRERA [facility] REC#: [id number] PT STATUS: REG ER : 1950 PHYSICIAN: HOLLY LONGO MD ADMIT DATE: 09/28/21/ER FS Draft Date of Exam:09/28/21 CT ABDOMEN/PELVIS WO EXAMINATION: CT abdomen and pelvis without contrast. TECHNIQUE: Multiple contiguous axial images were obtained through the abdomen and pelvis without the use of intravenous contrast. All CT scans use one or more of the following dose optimizing techniques: automated exposure control, MA and/or KvP adjustment based on patient size and exam type or iterative reconstruction. HISTORY: Nausea and vomiting. COMPARISON: 08/14/2021. FINDINGS: Limited views of the lower thorax are unremarkable. Liver surface is nodular consistent with cirrhosis. No focal liver lesion is seen. There is no biliary ductal dilation. Gallbladder is surgically absent. Pancreas is normal. Spleen is normal. Adrenal glands are normal. The kidneys are normal. There is no hydronephrosis. Urinary bladder is normal. There is a stable 3.0 cm cyst in the right adnexa. Bowel is normal in caliber without obstruction or inflammation. There is a fat-containing ventral abdominal hernia. No free fluid or air. No abdominal or pelvic lymphadenopathy. Aorta is normal in caliber without aneurysm. There are no suspicious osseus lesions. IMPRESSION: Cirrhotic liver without focal lesion. Dictated on workstation # [id number] Dict: [id number] Trans: [id number]/[id number] [facility] [id number] Interpreted by: VIOLETTE LY MD Electronically signed by: Departure Impression Primary Impression: COVID-19 virus infection Additional Impressions: Gastroenteritis due to 2019-nCoV Morbid obesity Liver cirrhosis Qualified Codes: K74.60 - Unspecified cirrhosis of liver Disposition: HOME, SELF-CARE Condition: Improved Departure-Patient Inst. Decision time for Depature: 22:17 Referrals: SELFBEENA MD (PCP/Family) Primary Care Physician Patient Instructions: Nirmatrelvir and Ritonavir FDA Fact Sheet, COVID-19 (DC), Viral Gastroenteritis, Adult (DC) Scripts Ondansetron (Ondansetron Odt) 4 Mg Tab.rapdis 4 MG PO TID PRN for NAUSEA-1ST LINE, #14 TAB Prov: HOLLY LONGO MD 09/28/21 HOLLY LONGO MD Sep 28, 2021 21:09
[2021-09-28 21:12] LABS: BACTERIA,URINE MODERATE /HPF; SQUAMOUS EPITHELIAL CELL,UR 25-50 /HPF; WBC,URINE 50-100 /HPF
[2021-09-28 21:35] LABS: BASOPHILS # (AUTO) 0.1 10^3/uL (0.0-0.1); BASOPHILS % (AUTO) 1 % (0-10); EOSINOPHILS # (AUTO) 0.2 10^3/uL (0.0-0.3); EOSINOPHILS % (AUTO) 2 % (0-10); HEMATOCRIT 38 % (35-52); HEMOGLOBIN 12.8 g/dL (11.5-16.0); LYMPHOCYTES # (AUTO) 1.6 10^3/uL (1.0-4.0); LYMPHOCYTES % (AUTO) 16 % (12-44); MEAN CORPUSCULAR HEMOGLOBIN 30 pg (25-34); MEAN CORPUSCULAR HGB CONC 34 g/dL (32-36); MEAN CORPUSCULAR VOLUME 90 fL (80-99); MONOCYTES # (AUTO) 0.8 10^3/uL (0.0-1.0); MONOCYTES % (AUTO) 9 % (0-12); NEUTROPHILS # (AUTO) 7.1 10^3/uL (1.8-7.8); NEUTROPHILS % (AUTO) 72 % (42-75); PLATELET COUNT 234 10^3/uL (130-400); WHITE BLOOD COUNT 9.9 10^3/uL (4.3-11.0)
[2021-09-28 21:57] LABS: ALBUMIN 3.5 GM/DL (3.2-4.5); BILIRUBIN,TOTAL 0.5 MG/DL (0.1-1.0); CALCIUM 9.6 MG/DL (8.5-10.1); CREATININE SERUM 0.74 MG/DL (0.60-1.30); POTASSIUM 3.8 MMOL/L (3.6-5.0); TOTAL PROTEIN 6.3 GM/DL (6.4-8.2)
[2021-09-28] MEDS ORDERED: RX-ONDANSETRON 4 MG ODT (ZOFRAN) PPK #4 PO STA (22:02)
[2021-09-28] MEDS ORDERED: RX-NIRMATRELVIR/RITONAVIR (PAXLOVID) #30 TABS PO SCH (22:15)
[2021-09-28] MEDS ORDERED: ONDA4TAB11 PO (22:19)
[2021-09-28 22:55] VITALS: BP 124/97
== END 2021-09-28 22:55 | disposition home or self-care (01) ==
LOC: EDUNIT# 19:25 → ER FS 19:29
DX: U07.1 COVID-19 (principal); A08.39 Other viral enteritis; E66.01 Morbid (severe) obesity due to excess calories; K74.60 Unspecified cirrhosis of liver; Z68.39 Body mass index [BMI] 39.0-39.9, adult
CPT/HCPCS: 36415; 74176; 80053; 81000; 83690; 85025; 87636

== ENCOUNTER 2021-10-07 10:30 | Observation (INO) | payer MEDICARE, OTHER ==
[~2021-10-07] VITALS: Ht 173 cm; Wt 96.3 kg
[2021-10-07 11:06] LABS: BASOPHILS # (AUTO) 0.1 10^3/uL (0.0-0.1); BASOPHILS % (AUTO) 1 % (0-10); EOSINOPHILS # (AUTO) 0.6 10^3/uL (0.0-0.3); EOSINOPHILS % (AUTO) 7 % (0-10); HEMATOCRIT 39 % (35-52); HEMOGLOBIN 13.4 g/dL (11.5-16.0); LYMPHOCYTES # (AUTO) 1.1 10^3/uL (1.0-4.0); LYMPHOCYTES % (AUTO) 15 % (12-44); MEAN CORPUSCULAR HEMOGLOBIN 31 pg (25-34); MEAN CORPUSCULAR HGB CONC 34 g/dL (32-36); MEAN CORPUSCULAR VOLUME 89 fL (80-99); MONOCYTES # (AUTO) 0.6 10^3/uL (0.0-1.0); MONOCYTES % (AUTO) 8 % (0-12); NEUTROPHILS # (AUTO) 5.3 10^3/uL (1.8-7.8); NEUTROPHILS % (AUTO) 69 % (42-75); PLATELET COUNT 213 10^3/uL (130-400); WHITE BLOOD COUNT 7.8 10^3/uL (4.3-11.0)
--- NOTE | 2021-10-07 11:06 | Diagnostic Imaging Report ---
Indication: Weakness. Compared: 08/14/2021 Findings: Air trapping and COPD is a chronic finding present. No infiltrate, effusion, pneumothorax or acute failure pattern. Benign calcified nodule left upper lung stable and chronic. Impression: Chronic COPD. No acute-appearing cardiopulmonary or pleural pathology. Dictated by: Dictated on workstation # [id number]
--- NOTE | 2021-10-07 11:20 | Diagnostic Imaging Report ---
PROCEDURE: CT head without contrast. TECHNIQUE: Multiple contiguous axial images were obtained through the brain without the use of intravenous contrast. Auto Exposure Controls were utilized during the CT exam to meet ALARA standards for radiation dose reduction. INDICATION: Falls and weakness. Compared with a CT 10/03/2020. A mild degree of central senescent cortical atrophy stable. No periventricular or cortical edema. No sulcal effacement. Mild periventricular white matter hypodensity likely small vessel sequelae stable. There are chronic intracranial atherosclerotic vascular calcifications. There is no hemorrhage, fracture or hemo-sinus and there is no pneumocephalus. There are no abnormal extra-axial fluid collections. No focal or generalized cerebral edema. IMPRESSION: Stable mild chronic senescent changes. No hemorrhage, edema, fracture or acute-appearing abnormalities. Dictated by: Dictated on workstation # [id number]
[2021-10-07 11:21] LABS: INR 0.9 (0.8-1.4); PROTHROMBIN TIME PATIENT 12.7 SEC (12.2-14.7)
[2021-10-07 11:43] VITALS: BP_SYST 117; BP_SYST 136; BP_SYST 162; BP_DIAS 59; BP_DIAS 61; BP_DIAS 70
[2021-10-07 11:44] LABS: CHLORIDE 96 MMOL/L (98-107); POTASSIUM 3.6 MMOL/L (3.6-5.0); SODIUM 136 MMOL/L (135-145)
[2021-10-07 11:45] LABS: BUN/CREATININE RATIO 15; CARBON DIOXIDE 30 MMOL/L (21-32); CREATININE SERUM 0.93 MG/DL (0.60-1.30); GFR ESTIMATED 66; GLUCOSE 162 MG/DL (70-105)
[2021-10-07 11:46] LABS: BILIRUBIN,URINE NEGATIVE (NEGATIVE); CLARITY,URINE CLEAR; COLOR,URINE YELLOW; GLUCOSE, URINE (UA) NEGATIVE (NEGATIVE); KETONES,URINE NEGATIVE (NEGATIVE); LEUKOCYTE ESTERASE ,URINE TRACE (NEGATIVE); NITRITE,URINE NEGATIVE (NEGATIVE); PH,URINE 6.5 (5-9); PROTEIN,URINE NEGATIVE (NEGATIVE)
[2021-10-07 11:46] LABS: ALANINE AMINOTRANSFERASE 19 U/L (0-55); ALKALINE PHOSPHATASE 78 U/L (40-136); BILIRUBIN,TOTAL 0.4 MG/DL (0.1-1.0); MAGNESIUM 1.1 MG/DL (1.6-2.4); TOTAL PROTEIN 6.5 GM/DL (6.4-8.2)
[2021-10-07 11:47] LABS: ALBUMIN 3.8 GM/DL (3.2-4.5)
--- NOTE | 2021-10-07 11:47 | ED General ---
General Chief Complaint: General Problems/Pain Stated Complaint: GEN WEAKNESS Nursing Triage Note: Patient reports she was recently diagnosed with COVID-19 and completed a course of paxlovid. She reports weakness and dizziness with two falls in the last two days. She reports shortness of breath with activity. She also reports hallucinations. Patient denies any injury from her falls. Source of Information: Patient Exam Limitations: No Limitations History of Present Illness Date Seen by Provider: Oct 07, 2021 Time Seen by Provider: 10:34 Initial Comments 71-year-old female patient with history of asthma, arthritis, anxiety, GERD, chronic back pain, chronic diarrhea, migraine headache, hypertension, hyperlipidemia, diabetes mellitus, coronary artery disease, recent history of COVID infection on September 28 and treated with Paxlovid presented POV with complaining of generalized weakness and falls. Patient states for the last couple days she has had 3 falls when she wanted to get up out of the chair without obvious injury. Patient complaining of feeling dizzy and generalized weakness without complaining of chest pain, focal neurodeficit, fever and chills, new cough, abdominal pain, nausea and vomiting, diarrhea and constipation, urinary symptoms. Patient states her appetite was like her usual and her previous abdominal pain and diarrhea improved after treatment with Paxlovid. Patient daughter called EMS but they decided to come POV to the [facility]. Allergies and Home Medications Allergies Coded Allergies: banana (Verified Allergy, Severe, 10/07/21) oxycodone (Verified Allergy, Mild, ITCHING, 04/11/19) codeine (Verified Allergy, Unknown, 03/13/20) melon (Verified Allergy, Unknown, 10/07/21) Patient Home Medication List Home Medication List Reviewed: Yes Albuterol Sulfate (Proair Hfa) 1 Puff Puff, 2 PUFF IH Q4H PRN for SHORTNESS OF BREATH, (Reported) Entered as Reported by: ZENIA PABON on 10/28/18 0920 Last Action: Reviewed Alprazolam (Alprazolam) 0.5 Mg Tablet, 0.5 MG PO DAILY PRN for ANXIETY, (Reported) Entered as Reported by: ZENIA PABON on 08/14/21 1600 Last Action: Reviewed Aspirin (Aspirin EC) 325 Mg Tablet.dr, 325 MG PO DAILY, (Reported) Entered as Reported by: ZENIA PABON on 08/14/211599 Last Action: Reviewed Carvedilol (Carvedilol) 25 Mg Tablet, 25 MG PO BID, (Reported) Entered as Reported by: ZENIA PABON on 08/14/211599 Last Action: Reviewed Cholecalciferol (Vitamin D3) (Vitamin D3) 50 Mcg (2000 Unit) Capsule, 50 MCG PO DAILY, (Reported) Entered as Reported by: ZENIA PABON on 08/14/211599 Last Action: Reviewed Hydrocodone/Acetaminophen (Hydrocodone-Acetamin 10-325 mg) 10 Mg-325 Mg Tablet, 1 EA PO BID PRN for PAIN-MODERATE (5-7), (Reported) Entered as Reported by: ZENIA PABON on 08/14/211599 Last Action: Reviewed Lisinopril (Lisinopril) 20 Mg Tablet, 20 MG PO DAILY, (Reported) Entered as Reported by: ZENIA PABON on 08/14/211599 Last Action: Reviewed Metformin HCl (Metformin HCl ER) 500 Mg Tab.er.24h, 500 MG PO DAILY, (Reported) Entered as Reported by: ZENIA PABON on 08/14/211599 Last Action: Reviewed Omeprazole (Omeprazole) 40 Mg Capsule.dr, 40 MG PO HS, (Reported) Entered as Reported by: ZENIA PABON on 10/28/18919 Last Action: Reviewed Ondansetron (Ondansetron Odt) 4 Mg Tab.rapdis, 4 MG PO Q8H PRN for NAUSEA/VOMITING-1ST LINE, (Reported) Entered as Reported by: ZENIA PABON on 08/14/211599 Last Action: Reviewed Ondansetron (Ondansetron Odt) 4 Mg Tab.rapdis, 4 MG PO TID PRN for NAUSEA-1ST LINE Prescribed by: Holly longo on 09/28/212218 Last Action: Reviewed Simvastatin (Simvastatin) 20 Mg Tablet, 20 MG PO DAILY, (Reported) Entered as Reported by: ZENIA PABON on 10/28/18919 Last Action: Reviewed Ubrogepant (Ubrelvy) 50 Mg Tablet, 50 MG PO DAILY PRN for MIGRAINE, (Reported) Entered as Reported by: ZENIA PABON on 08/14/211599 Last Action: Reviewed Vit C/E/Zn/Coppr/Lutein/Zeaxan (Preservision Areds 2 Softgel) 250MG-90MG Capsule, 1 EACH PO DAILY, (Reported) Entered as Reported by: ZENIA PABON on 08/14/21 1600 Last Action: Reviewed Discontinued Medications Ciprofloxacin HCl (Ciprofloxacin HCl) 500 Mg Tablet, 500 MG PO BID Discontinued Reason: No Longer Taking Prescribed by: ROSA RODRIGEUZ on 08/16/21 111 Last Action: Discontinued Metronidazole (Metronidazole) 500 Mg Tablet, 500 MG PO TID Discontinued Reason: No Longer Taking Prescribed by: ROSA RODRIGUEZ on 08/16/21 111 Last Action: Discontinued Review of Systems Review of Systems Constitutional: see HPI EENTM: see HPI Respiratory: see HPI Cardiovascular: no symptoms reported Gastrointestinal: see HPI Genitourinary: no symptoms reported Musculoskeletal: see HPI Skin: no symptoms reported Psychiatric/Neurological: No Symptoms Reported Hematologic/Lymphatic: No Symptoms Reported Immunological/Allergic: no symptoms reported All Other Systems Reviewed Negative Unless Noted: Yes Past Jwyfckh-Gygcgy-Zaqpvw Hx Patient Social History Tobacco Use?: No Substance use?: No Alcohol Use?: No Pt feels they are or have been: No Immunizations Up To Date PED Vaccines UTD: No Seasonal Allergies Seasonal Allergies: Yes (POSSIBLY MILD) Past Medical History Surgery/Hospitalization HX: Asthma/COPD, CAD, DM, HTN, high cholesterol Surgeries: Yes (L TKR, L WRIST) Orthopedic Respiratory: Yes (O2 2L AT NIGHT) Asthma Currently Using CPAP: No Currently Using BIPAP: No Cardiac: Yes (STENTS-2007) Coronary Artery Disease, Heart Attack, High Cholesterol, Hypertension Neurological: Yes Headaches /Migraines Sexually Transmitted Disease: No HIV/AIDS: No Genitourinary: No Gastrointestinal: Yes Gastroesophageal Reflux, Chronic Diarrhea Musculoskeletal: Yes (KNEES/HANDS) Arthritis, Chronic Back Pain Endocrine: Yes Diabetes, Non-Insulin dep HEENT: Yes (READING GLASSES) Loss of Vision: Denies Hearing Impairment: Denies Cancer: No Psychosocial: Yes Anxiety Integumentary: Yes (BACTERIAL INFECTION OF SKIN JAN 2019) Blood Disorders: No Adverse Reaction/Blood Tranf: No (HAS HAD BLOOD WITH NO REACTION) Family Medical History No Pertinent Family Hx Physical Exam Vital Signs Vital Signs - First Documented 10/07/21 10:43 Temp 36.3 Pulse 64 Resp 20 B/P (MAP) 160/53 (88) Pulse Ox 92 O2 Delivery Room Air Capillary Refill : Less Than 3 Seconds Height, Weight, BMI Height: 5'0.00" Weight: 252lbs. 0.0oz. [id number]; 41.00 BMI Method: General Appearance: No Apparent Distress, WD/WN, Obese Eyes: Bilateral Eye Normal Inspection, Bilateral Eye PERRL, Bilateral Eye EOMI HEENT: PERRL/EOMI, Normal ENT Inspection, Pharynx Normal Neck: Full Range of Motion, Non Tender Respiratory: Chest Non Tender, Lungs Clear, Normal Breath Sounds, No Accessory Muscle Use, No Respiratory Distress Cardiovascular: Regular Rate, Rhythm, No Edema, No Gallop, No JVD, No Murmur Gastrointestinal: Normal Bowel Sounds, No Organomegaly, No Pulsatile Mass, Non Tender, Soft Back: Normal Inspection, No CVA Tenderness Extremity: Normal Capillary Refill, Normal Inspection, Normal Range of Motion, Non Tender Neurologic/Psychiatric: Alert, Oriented x3, No Motor/Sensory Deficits, Normal Mood/Affect, 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 Norm as Tested Skin: Normal Color, Warm/Dry Focused Exam Lactate Level 10/07/21 10:40: Lactic Acid Level 1.93 Lactic Acid Level Laboratory Tests Test 10/07/21 10:40 Lactic Acid Level 1.93 MMOL/L (0.50-2.00) Progress/Results/Core Measures Suspected Sepsis SIRS Temperature: Pulse: 64 Respiratory Rate: 20 Laboratory Tests 10/07/21 10:40: White Blood Count 7.8 Blood Pressure 160 /53 Mean: 88 10/07/21 10:40: Lactic Acid Level 1.93 Laboratory Tests 10/07/21 10:40: Creatinine 0.93, INR Comment 0.9, Platelet Count 213, Total Bilirubin 0.4 Results/Orders Lab Results Laboratory Tests Test 10/07/21 10:38 10/07/21 10:40 10/07/21 11:35 Range/Units Glucometer 182 H 70-110 MG/DL White Blood Count 7.8 4.3-11.0 10^3/uL Red Blood Count 4.38 3.80-5.11 10^6/uL Hemoglobin 13.4 11.5-16.0 g/dL Hematocrit 39 35-52 % Mean Corpuscular Volume 89 80-99 fL Mean Corpuscular Hemoglobin 31 25-34 pg Mean Corpuscular Hemoglobin Concent 34 32-36 g/dL Red Cell Distribution Width 12.9 10.0-14.5 % Platelet Count 213 130-400 10^3/uL Mean Platelet Volume 10.0 9.0-12.2 fL Immature Granulocyte % (Auto) 0 % Neutrophils (%) (Auto) 69 42-75 % Lymphocytes (%) (Auto) 15 12-44 % Monocytes (%) (Auto) 8 0-12 % Eosinophils (%) (Auto) 7 0-10 % Basophils (%) (Auto) 1 0-10 % Neutrophils # (Auto) 5.3 1.8-7.8 10^3/uL Lymphocytes # (Auto) 1.1 1.0-4.0 10^3/uL Monocytes # (Auto) 0.6 0.0-1.0 10^3/uL Eosinophils # (Auto) 0.6 H 0.0-0.3 10^3/uL Basophils # (Auto) 0.1 0.0-0.1 10^3/uL Immature Granulocyte # (Auto) 0.0 0.0-0.1 10^3/uL Prothrombin Time 12.7 12.2-14.7 SEC INR Comment 0.9 0.8-1.4 Activated Partial Thromboplast Time 25 24-35 SEC Sodium Level 136 135-145 MMOL/L Potassium Level 3.6 3.6-5.0 MMOL/L Chloride Level 96 L 98-107 MMOL/L Carbon Dioxide Level 30 21-32 MMOL/L Anion Gap 10 5-14 MMOL/L Blood Urea Nitrogen 14 7-18 MG/DL Creatinine 0.93 0.60-1.30 MG/DL Estimat Glomerular Filtration Rate 66 BUN/Creatinine Ratio 15 Glucose Level 162 H 70-105 MG/DL Lactic Acid Level 1.93 0.50-2.00 MMOL/L Calcium Level 10.0 8.5-10.1 MG/DL Corrected Calcium 10.2 H 8.5-10.1 MG/DL Magnesium Level 1.1 *L 1.6-2.4 MG/DL Total Bilirubin 0.4 0.1-1.0 MG/DL Aspartate Amino Transf (AST/SGOT) 25 5-34 U/L Alanine Aminotransferase (ALT/SGPT) 19 0-55 U/L Alkaline Phosphatase 78 40-136 U/L Troponin I < 0.30 <0.30 NG/ML Pro-B-Type Natriuretic Peptide 196.2 H <125.0 PG/ML Total Protein 6.5 6.4-8.2 GM/DL Albumin 3.8 3.2-4.5 GM/DL SARS-CoV-2 RNA (RT-PCR) Detected H Not Detecte Urine Color YELLOW Urine Clarity CLEAR Urine pH 6.5 5-9 Urine Specific [place] <=1.005 1.016-1.022 Urine Protein NEGATIVE NEGATIVE Urine Glucose (UA) NEGATIVE NEGATIVE Urine Ketones NEGATIVE NEGATIVE Urine Nitrite NEGATIVE NEGATIVE Urine Bilirubin NEGATIVE NEGATIVE Urine Urobilinogen 0.2 < = 1.0 MG/DL Urine Leukocyte Esterase TRACE H NEGATIVE Urine RBC (Auto) NEGATIVE NEGATIVE Urine RBC NONE /HPF Urine WBC 2-5 /HPF Urine Squamous Epithelial Cells 0-2 /HPF Urine Crystals NONE /LPF Urine Bacteria TRACE /HPF Urine Casts NONE /LPF Urine Mucus NEGATIVE /LPF Urine Culture Indicated NO My Orders Orders - HOLLY LONGO MD Cbc With Automated Diff (10/07/21 10:42) Comprehensive Metabolic Panel (10/07/21 10:42) Protime With Inr (10/07/21 10:42) Partial Thromboplastin Time (10/07/21 10:42) Chest 1 View Ap/Pa Only (10/07/21 10:42) Ed Iv/Invasive Line Start (10/07/21 10:42) Troponin I Katheryn (10/07/21 10:42) Lactic Acid Analyzer (10/07/21 10:42) Magnesium (10/07/21 10:42) Orthostatic Vital Signs (Adult (10/07/21 10:42) Ua Culture If Indicated (10/07/21 10:42) Ct Head Wo (10/07/21 10:42) Accucheck Stat ONCE (10/07/21 10:42) Covid 19 Inhouse Test (10/07/21 10:47) Probnp Fs (10/07/21 10:40) Magnesium 1 Gm/100 Ml Ivpb (Magnesium Moya (10/07/21 12:00) Ekg Tracing (10/07/21 11:50) Ed Admission (Communication) (10/07/21 12:52) Vital Signs/I&O 10/07/21 10/07/21 10/07/21 10:43 11:43 13:55 Temp 36.3 Pulse 64 70 58 65 75 Resp 20 20 B/P (MAP) 160/53 (88) 162/70 (100) 124/54 136/61 (86) 117/59 (78) Pulse Ox 92 96 O2 Delivery Room Air Room Air Capillary Refill : Less Than 3 Seconds Blood Pressure Mean: 88 Point of Care Testing Finger Stick Blood Glucose: 182 Progress Note : Progress Note Evaluation of patient in ER showed 71-year-old female patient with history of recent COVID infection and treatment with Paxlovid with complaining of generalized weakness and frequent falls. Patient did not have neurodeficit. CT head was unremarkable. Patient had drop of blood pressure from 160 insists supine position to 115 with standing position. Labs showed magnesium of 1.1 and patient treated with IV magnesium. Patient also had elevation of blood sugar with history of diabetes mellitus. Patient had generalized weakness and unable to ambulate without help. Dr. Rogel accepted admission at 1252 to [facility]. ECG Initial ECG Impression Date: Oct 07, 2021 Initial ECG Impression Time: 11:54 Initial ECG Intervals EKG interpreted by me. EKG at 1154 showed normal sinus rhythm at rate of 61, right bundle branch block, no acute ST and T wave elevation. Diagnostic Imaging Diagonstic Imaging: CT Comments CT head interpreted by radiologist and reviewed by me and showed: NAME: KATHARINA BARRERA [facility] REC#: [id number] PT STATUS: REG ER : 1950 PHYSICIAN: HOLLY LONGO MD ADMIT DATE: 10/07/21/ER FS Signed Date of Exam:10/07/21 CT HEAD WO PROCEDURE: CT head without contrast. TECHNIQUE: Multiple contiguous axial images were obtained through the brain without the use of intravenous contrast. Auto Exposure Controls were utilized during the CT exam to meet ALARA standards for radiation dose reduction. INDICATION: Falls and weakness. Compared with a CT 10/03/2020. A mild degree of central senescent cortical atrophy stable. No periventricular or cortical edema. No sulcal effacement. Mild periventricular white matter hypodensity likely small vessel sequelae stable. There are chronic intracranial atherosclerotic vascular calcifications. There is no hemorrhage, fracture or hemo-sinus and there is no pneumocephalus. There are no abnormal extra-axial fluid collections. No focal or generalized cerebral edema. IMPRESSION: Stable mild chronic senescent changes. No hemorrhage, edema, fracture or acute-appearing abnormalities. Dictated by: Dictated on workstation # [id number] Dict: 10/07/21 1116 Trans: 10/07/21 1158 CVB [id number] Interpreted by: FIFI CARTER Electronically signed by: FIFI CARTER 10/07/21 1158 Chest x-ray interpreted by radiologist and reviewed by me and showed: [place] NAME: KATHARINA BARRERA [facility] REC#: [id number] PT STATUS: REG ER : 1950 PHYSICIAN: HOLLY LONGO MD ADMIT DATE: 10/07/21/ER FS Signed Date of Exam:10/07/21 CHEST 1 VIEW AP/PA ONLY Indication: Weakness. Compared: 08/14/2021 Findings: Air trapping and COPD is a chronic finding present. No infiltrate, effusion, pneumothorax or acute failure pattern. Benign calcified nodule left upper lung stable and chronic. Impression: Chronic COPD. No acute-appearing cardiopulmonary or pleural pathology. Dictated by: Dictated on workstation # [id number] Dict: 10/07/21 1104 Trans: 10/07/21 1158 CVB [id number] Interpreted by: FIFI CARTER Electronically signed by: FIFI CARTER 10/07/21 1158 Departure Communication (Admissions) Time/Spoke to Admitting Phy: 12:52 Dr. Rogel accepted admission to [place] [facility] Impression Primary Impression: Hypomagnesemia Additional Impressions: Generalized weakness Frequent falls Lab test positive for detection of COVID-19 virus Orthostatic hypotension Uncontrolled diabetes mellitus Qualified Codes: E13.65 - Other specified diabetes mellitus with hyperglycemia Disposition: 30 STILL A PATIENT Condition: Improved Admissions Decision to Admit Reason: Admit from ER (General) Decision to Admit/Date: Oct 07, 2021 Time/Decision to Admit Time: 12:52 Transfer Method of Transfer: EMS Departure-Patient Inst. Referrals: BEENA JERONIMO MD (PCP) Primary Care Physician HOLLY LONGO MD Oct 07, 2021 11:47
[2021-10-07] MEDS: MAGNESIUM 1 GM/100 ML IVPB 100 ML IV SCH ×2 (12:08→13:23)
[2021-10-07 12:13] LABS: BACTERIA,URINE TRACE /HPF; SQUAMOUS EPITHELIAL CELL,UR 0-2 /HPF
[2021-10-07 15:13] VITALS: BP 178/74
[2021-10-07] MEDS ORDERED: lisINopril 10 MG (PRINIVIL) TABLET PO ONE (18:30)
[2021-10-07 19:07] VITALS: BP 164/72
[2021-10-07] MEDS: inSUlin ASPART (NovoLOG) 1 UNIT/0.01 ML (CHARGE PER UNIT) SC SCH (20:42)
[2021-10-07] MEDS ORDERED: ACETAMINOPHEN 500 MG TAB (TYLENOL) ONE (21:54)
[2021-10-07] MEDS ORDERED: ACETAMINOPHEN 500 MG TAB (TYLENOL) PO PRN (22:00)
[2021-10-07 23:18] VITALS: BP 151/65
[2021-10-08 04:33] VITALS: BP 167/73
[2021-10-08] MEDS: inSUlin ASPART (NovoLOG) 1 UNIT/0.01 ML (CHARGE PER UNIT) SC SCH ×4 (06:31→20:23)
[2021-10-08 07:39] VITALS: BP 174/99
[2021-10-08 08:33] LABS: POTASSIUM 3.5 MMOL/L (3.6-5.0)
[2021-10-08 08:34] LABS: CALCIUM 9.2 MG/DL (8.5-10.1)
[2021-10-08 08:39] LABS: CREATININE SERUM 0.83 MG/DL (0.60-1.30)
[2021-10-08 08:41] LABS: MAGNESIUM 1.3 MG/DL (1.6-2.4)
[2021-10-08] MEDS ORDERED: KCL 20 MEQ TAB (K-DUR) PO ONE ×2 (08:45→09:30)
[2021-10-08] MEDS: MAGNESIUM 1 GM/100 ML IVPB 100 ML IV SCH ×2 (09:20→09:33)
[2021-10-08] MEDS: lisINopril 20 MG (PRINIVIL) TABLET PO SCH (09:20)
[2021-10-08] MEDS ORDERED: NITR0.4T42 SL (10:13)
[2021-10-08] MEDS ORDERED: BUPR-105 PO (10:13)
[2021-10-08] MEDS ORDERED: ONDA4TAB11 PO (10:13)
[2021-10-08 11:29] VITALS: BP 156/87
--- NOTE | 2021-10-08 12:19 | History & Physical ---
HILDA NICOLE 10/08/21 1219: History of Present Illness History of Present Illness Reason for visit/HPI I had the pleasure this morning of meeting Reyna Valle, a 71 yo white female, who was admitted to the hospital with a chief complaint of falls and generalized weakness. Pt arrived in the ED on 10/07/2021 via EMS. She reports 3 falls since last Thursday with no significant injury. She states she has only felt dizzy one time before a fall. Other times the falls occur without warning simply as she is standing. Reyna has attempted to prevent falls by sitting quickly or steadying herself on tabletops/counter tops. Pt reports experiencing weakness in the past. She has not been experiencing pain. Pt lives at home with her daughter. Ms. Valle recently tested positive for COVID-19 and has been treated with Paxlovid. She sees Dr. Krishnan for primary care. ROS: Pos: syncope, dizziness, weakness; Neg: fever, chills, nausea, vomiting Meds: pantoprazole, potassium chloride, lisinopril, carvedilol, insulin aspart, magnesium All: codiene, oxycodone, melon, banana, tree nut PMH: DM II, HTN SurgHx: Cholecystectomy, brest biopsy Fam Hx: F: DM () M: heart problems () SocHx: Alc: none / Smoking: never smoker / Illicit drugs: none Date of Admission Oct 07, 2021 at 14:45 Time Seen by a Provider: 09:10 I consulted on this patient on 10/08/21 12:13 Attending Physician Tree Krishnan MD Admitting Physician Admitting Physician: Aniya Prieto MD Attending Physician: Aniya Prieto MD Consult Allergies and Home Medications Allergies Coded Allergies: banana (Verified Allergy, Severe, 10/07/21) oxycodone (Verified Allergy, Mild, ITCHING, 04/11/19) codeine (Verified Allergy, Unknown, 03/13/20) melon (Verified Allergy, Unknown, 10/07/21) tree nut (Verified Allergy, Unknown, 10/08/21) Patient Home Medication List Albuterol Sulfate (Proair Hfa) 1 Puff Puff, 2 PUFF IH Q4H PRN for SHORTNESS OF BREATH, (Reported) Entered as Reported by: ZENIA PBAON on 10/28/18919 Last Action: Reviewed Alprazolam (Alprazolam) 0.5 Mg Tablet, 0.25-0.5 MG PO HS PRN for ANXIETY, (Reported) Entered as Reported by: ZENIA PABON on 08/14/211599 Last Action: Reviewed Aspirin (Aspirin EC) 325 Mg Tablet.dr, 325 MG PO DAILY, (Reported) Entered as Reported by: ZENIA PABON on 08/14/211599 Last Action: Reviewed Bupropion HCl (Bupropion HCl Sr) 150 Mg Tablet.er, 150 MG PO BID, (Reported) Entered as Reported by: ZENIA PABON on 10/08/211012 Last Action: Continued Carvedilol (Carvedilol) 25 Mg Tablet, 25 MG PO BID, (Reported) Entered as Reported by: ZENIA PABON on 08/14/211599 Last Action: Reviewed Hydrocodone/Acetaminophen (Hydrocodone-Acetamin 10-325 mg) 10 Mg-325 Mg Tablet, 1 EA PO BID PRN for PAIN-MODERATE (5-7), (Reported) Entered as Reported by: ZENIA PABON on 08/14/211599 Last Action: Continued Lisinopril (Lisinopril) 20 Mg Tablet, 20 MG PO DAILY, (Reported) Entered as Reported by: ZENIA PABON on 08/14/211599 Last Action: Reviewed Metformin HCl (Metformin HCl ER) 500 Mg Tab.er.24h, 500 MG PO HS, (Reported) Entered as Reported by: ZENIA PABON on 08/14/211599 Last Action: Reviewed Nitroglycerin (Nitroglycerin) 0.4 Mg Tab.subl, 0.4 MG SL UD PRN for CHEST PAIN (ANGINA), (Reported) Entered as Reported by: ZENIA PABON on 10/08/211012 Last Action: Reviewed Omeprazole (Omeprazole) 40 Mg Capsule.dr, 40 MG PO DAILY, (Reported) Entered as Reported by: ZENIA PABON on 10/28/18919 Last Action: Reviewed Ondansetron (Ondansetron Odt) 4 Mg Tab.rapdis, 4 MG PO Q8H PRN for NAUSEA/VOMITING-1ST LINE, (Reported) Entered as Reported by: ZENIA PABON on 8/2/22 1013 Last Action: Reviewed Simvastatin (Simvastatin) 20 Mg Tablet, 20 MG PO HS, (Reported) Entered as Reported by: ZENIA PABON on 10/28/18 0920 Last Action: Reviewed Ubrogepant (Ubrelvy) 50 Mg Tablet, 50 MG PO DAILY PRN for MIGRAINE, (Reported) Entered as Reported by: ZENIA PABON on 08/14/21 1600 Last Action: Reviewed Discontinued Medications Cholecalciferol (Vitamin D3) (Vitamin D3) 50 Mcg (2000 Unit) Capsule, 50 MCG PO DAILY, (Reported) Discontinued Reason: No Longer Taking Entered as Reported by: ZENIA PABON on 08/14/21 1600 Last Action: Discontinued Ciprofloxacin HCl (Ciprofloxacin HCl) 500 Mg Tablet, 500 MG PO BID Discontinued Reason: No Longer Taking Prescribed by: ROSA RODRIGUEZ on 08/16/21 111 Last Action: Discontinued Metronidazole (Metronidazole) 500 Mg Tablet, 500 MG PO TID Discontinued Reason: No Longer Taking Prescribed by: ROSA RODRIGUEZ on 08/16/21 111 Last Action: Discontinued Ondansetron (Ondansetron Odt) 4 Mg Tab.rapdis, 4 MG PO Q8H PRN for NAUSEA/VOMITING-1ST LINE, (Reported) Discontinued Reason: Duplicate Order Entered as Reported by: ZENIA PABON on 08/14/211599 Last Action: Discontinued Ondansetron (Ondansetron Odt) 4 Mg Tab.rapdis, 4 MG PO TID PRN for NAUSEA-1ST LINE Discontinued Reason: Duplicate Order Prescribed by: Holly loera on 09/28/212218 Last Action: Discontinued Vit C/E/Zn/Coppr/Lutein/Zeaxan (Preservision Areds 2 Softgel) 250MG-90MG Capsule, 1 EACH PO DAILY, (Reported) Discontinued Reason: No Longer Taking Entered as Reported by: ZENIA PABON on 08/14/211599 Last Action: Discontinued Past Jrqdggu-Lakhqn-Zfwnnd Hx Patient Social History Tobacco Use?: No Smoking Status: Never a Smoker Use of E-Cig and/or Vaping dev: No Substance use?: No Alcohol Use?: No Pt feels they are or have been: No Immunizations Up To Date Date of Influenza Vaccine: Dec 13, 2018 Tetanus Booster (TDap): Less Than 5 Years Hepatitis A: No Hepatitis B: No PED Vaccines UTD: No Date of Pneumonia Vaccine: Dec 07, 2017 Seasonal Allergies Seasonal Allergies: Yes (POSSIBLY MILD) Current Status status: No status: No Advance Directives: No Communicates: Verbally Primary Language: [place] Preferred Spoken Language: [place] Is interpretation needed?: No Sensory deficits: Hearing impairment Additional sensory deficits: 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 Implanted or Applied Medical D: BiPAP Past Medical History Surgeries: Gallbladder, Orthopedic Asthma Currently Using CPAP: No Currently Using BIPAP: No Coronary Artery Disease, Heart Attack, High Cholesterol, Hypertension Headaches /Migraines Sexually Transmitted Disease: No HIV/AIDS: No Gastroesophageal Reflux, Chronic Diarrhea Arthritis, Chronic Back Pain Diabetes, Non-Insulin dep Loss of Vision: Denies Hearing Impairment: Denies Anxiety Blood Disorders: No Adverse Reaction/Blood Tranf: No (HAS HAD BLOOD WITH NO REACTION) CAD NIDDM Asthma Migraine NORRIS Chronic abdominal pain Family Medical History No Pertinent Family Hx Review of Systems Constitutional: see HPI, dizziness, weakness EENTM: no symptoms reported Respiratory: no symptoms reported Cardiovascular: syncope Gastrointestinal: no symptoms reported Genitourinary: no symptoms reported : No Musculoskeletal: no symptoms reported Skin: no symptoms reported Psychiatric/Neurological: No Symptoms Reported Physical Exam Vital Signs Vital Signs - First Documented 10/07/21 10/08/21 10:43 04:33 Temp 36.3 Pulse 64 Resp 20 B/P (MAP) 160/53 (88) Pulse Ox 92 O2 Delivery Room Air O2 Flow Rate 2.00 Capillary Refill : Less Than 3 Seconds Height, Weight, BMI Height: 5'0.00" Weight: 252lbs. 0.0oz. [id number]; 32.17 BMI Method: General Appearance: No Apparent Distress Respiratory: Chest Non Tender, Lungs Clear, Normal Breath Sounds, No Accessory Muscle Use, No Respiratory Distress Cardiovascular: Regular Rate, Rhythm, No Edema, No Murmur, Normal Peripheral Pulses Gastrointestinal: Normal Bowel Sounds, Non Tender, Soft Back: Normal Inspection, No Vertebral Tenderness Extremity: Normal Capillary Refill, Normal Inspection, Normal Range of Motion, No Pedal Edema Neurologic/Psychiatric: Alert, Oriented x3, No Motor/Sensory Deficits, Normal Mood/Affect Skin: Normal Color, Warm/Dry Comments Strength is 5/5 in bilateral upper and lower extremities Assessment/Plan Assessment and Plan Assessment: Falls relating to Hypertension Hypomagnesemia Hypokalemia Plan: Administer magnesium and potassium Mobilize pt and assess for dizziness and syncope Consider for discharge Problems: (1) Hypomagnesemia Status: Acute (2) Frequent falls Status: Acute Clinical Quality Measures Admission Status Admission Dx Falls, Generilzed Weakness, Hypomagnesemia ANIYA PRIETO MD 10/08/211907: Allergies and Home Medications Allergies Coded Allergies: banana (Verified Allergy, Severe, 10/07/21) oxycodone (Verified Allergy, Mild, ITCHING, 04/11/19) codeine (Verified Allergy, Unknown, 03/13/20) melon (Verified Allergy, Unknown, 10/07/21) tree nut (Verified Allergy, Unknown, 10/08/21) Patient Home Medication List Home Medication List Reviewed: Yes Albuterol Sulfate (Proair Hfa) 1 Puff Puff, 2 PUFF IH Q4H PRN for SHORTNESS OF BREATH, (Reported) Entered as Reported by: ZENIA PABON on 10/28/18 0920 Last Action: Reviewed Alprazolam (Alprazolam) 0.5 Mg Tablet, 0.25-0.5 MG PO HS PRN for ANXIETY, (Reported) Entered as Reported by: ZENIA PABON on 08/14/211599 Last Action: Reviewed Aspirin (Aspirin EC) 325 Mg Tablet.dr, 325 MG PO DAILY, (Reported) Entered as Reported by: ZENIA PABON on 08/14/211599 Last Action: Reviewed Bupropion HCl (Bupropion HCl Sr) 150 Mg Tablet.er, 150 MG PO BID, (Reported) Entered as Reported by: ZENIA PABON on 10/08/21 1013 Last Action: Continued Carvedilol (Carvedilol) 25 Mg Tablet, 25 MG PO BID, (Reported) Entered as Reported by: ZENIA PABON on 08/14/211599 Last Action: Reviewed Hydrocodone/Acetaminophen (Hydrocodone-Acetamin 10-325 mg) 10 Mg-325 Mg Tablet, 1 EA PO BID PRN for PAIN-MODERATE (5-7), (Reported) Entered as Reported by: ZENIA PABON on 08/14/211599 Last Action: Continued Lisinopril (Lisinopril) 20 Mg Tablet, 20 MG PO DAILY, (Reported) Entered as Reported by: ZENIA PABON on 08/14/211599 Last Action: Reviewed Metformin HCl (Metformin HCl ER) 500 Mg Tab.er.24h, 500 MG PO HS, (Reported) Entered as Reported by: ZENIA PABON on 08/14/211599 Last Action: Reviewed Nitroglycerin (Nitroglycerin) 0.4 Mg Tab.subl, 0.4 MG SL UD PRN for CHEST PAIN (ANGINA), (Reported) Entered as Reported by: ZENIA PABON on 10/08/21 101 Last Action: Reviewed Omeprazole (Omeprazole) 40 Mg Capsule.dr, 40 MG PO DAILY, (Reported) Entered as Reported by: ZENIA PABON on 10/28/18919 Last Action: Reviewed Ondansetron (Ondansetron Odt) 4 Mg Tab.rapdis, 4 MG PO Q8H PRN for NAUSEA/VOMITING-1ST LINE, (Reported) Entered as Reported by: ZENIA PABON on 10/08/21 101 Last Action: Reviewed Simvastatin (Simvastatin) 20 Mg Tablet, 20 MG PO HS, (Reported) Entered as Reported by: ZENIA PABON on 10/28/18919 Last Action: Reviewed Ubrogepant (Ubrelvy) 50 Mg Tablet, 50 MG PO DAILY PRN for MIGRAINE, (Reported) Entered as Reported by: ZENIA PABON on 08/14/211599 Last Action: Reviewed Discontinued Medications Cholecalciferol (Vitamin D3) (Vitamin D3) 50 Mcg (2000 Unit) Capsule, 50 MCG PO DAILY, (Reported) Discontinued Reason: No Longer Taking Entered as Reported by: ZENIA PABON on 08/14/211599 Last Action: Discontinued Ciprofloxacin HCl (Ciprofloxacin HCl) 500 Mg Tablet, 500 MG PO BID Discontinued Reason: No Longer Taking Prescribed by: ROSA RODRIGUEZ on 08/16/211112 Last Action: Discontinued Metronidazole (Metronidazole) 500 Mg Tablet, 500 MG PO TID Discontinued Reason: No Longer Taking Prescribed by: ROSA RODRIGUEZ on 08/16/211112 Last Action: Discontinued Ondansetron (Ondansetron Odt) 4 Mg Tab.rapdis, 4 MG PO Q8H PRN for NAUSEA/VOMITING-1ST LINE, (Reported) Discontinued Reason: Duplicate Order Entered as Reported by: ZENIA PABON on 08/14/211599 Last Action: Discontinued Ondansetron (Ondansetron Odt) 4 Mg Tab.rapdis, 4 MG PO TID PRN for NAUSEA-1ST LINE Discontinued Reason: Duplicate Order Prescribed by: Holly loera on 09/28/212218 Last Action: Discontinued Vit C/E/Zn/Coppr/Lutein/Zeaxan (Preservision Areds 2 Softgel) 250MG-90MG Capsule, 1 EACH PO DAILY, (Reported) Discontinued Reason: No Longer Taking Entered as Reported by: ZENIA PABON on 08/14/21 1600 Last Action: Discontinued Past Cfebvej-Pazoqd-Nwlbya Hx Patient Social History Living Status: Llives at home independently Review of Systems Constitutional: dizziness, weakness EENTM: no symptoms reported Respiratory: dyspnea on exertion Cardiovascular: syncope Gastrointestinal: no symptoms reported Genitourinary: no symptoms reported Musculoskeletal: muscle pain Skin: no symptoms reported Psychiatric/Neurological: No Symptoms Reported Physical Exam General Appearance: No Apparent Distress, WD/WN HEENT: PERRL/EOMI Neck: Full Range of Motion, Normal Inspection Respiratory: Chest Non Tender, Lungs Clear, Normal Breath Sounds, No Accessory Muscle Use, No Respiratory Distress Cardiovascular: Regular Rate, Rhythm, No Edema, No Murmur, Normal Peripheral Pulses Gastrointestinal: Normal Bowel Sounds, Non Tender, Soft Back: Normal Inspection, No Vertebral Tenderness Extremity: Normal Capillary Refill, Normal Inspection, Normal Range of Motion, Non Tender, No Calf Tenderness, No Pedal Edema Neurologic/Psychiatric: Alert, Oriented x3, No Motor/Sensory Deficits, Normal 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, 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 Skin: Normal Color, Warm/Dry Lymphatic: No Adenopathy Assessment/Plan Assessment and Plan Problems: (1) Frequent falls Status: Acute Assessment & Plan: - No acute neurological deficits, likely 2/2 recent covid infection, will order PT and encourage using walker (2) Generalized weakness Status: Acute (3) HLD (hyperlipidemia) Status: Chronic Qualifiers: Qualified Codes: E78.5 - Hyperlipidemia, unspecified Assessment & Plan: - Continue home meds (4) HTN (hypertension) Status: Chronic Qualifiers: Qualified Codes: I10 - Essential (primary) hypertension Assessment & Plan: - Continue home meds, mildly elevated (5) Uncontrolled diabetes mellitus Status: Acute Qualifiers: Qualified Codes: E13.65 - Other specified diabetes mellitus with hyperglycemia Assessment & Plan: - holding metformin, SSI, accuchecks (6) COVID-19 virus infection Status: Acute (7) Orthostatic hypotension Status: Resolved (8) Hypokalemia Status: Acute Assessment & Plan: - replaced and repeat BMP in AM (9) Hypomagnesemia Status: Acute Assessment & Plan: - Replaced and repeat level in AM (10) DVT prophylaxis Status: Acute Assessment & Plan: Lovenox Admission Diagnosis Admission Status: Observation Supervisory-Addendum Brief Verification & Attestation Participated in pt care: history, physical Personally performed: exam, history Care discussed with: Medical Student Procedures: n/a Verification and Attestation of Medical Student E/M Service A medical student performed and documented this service in my presence. I reviewed and verified all information documented by the medical student and made modifications to such information, when appropriate. I personally performed the physical exam and medical decision making. Aniya Prieto, Oct 08, 2021,19:11 HILDA NICOLE Oct 08, 2021 12:19 ANIYA PRIETO MD Oct 08, 2021 19:08
--- NOTE | 2021-10-08 14:31 | Physical Therapy Evaluation ---
PT Evaluation-General Medical Diagnosis Admission Date Oct 07, 2021 at 14:45 Medical Diagnosis: Falls and generalized weakness Onset Date: Oct 07, 2021 Therapy Diagnosis Therapy Diagnosis: Gait deficit, strength deficit Height/Weight Height (Feet): 5 Height (Inches): 0.00 Weight (Pounds): 252 Weight (Ounces): 0.0 Precautions Precautions/Isolations: Fall Prevention, Standard Precautions Weight Bear Status Right Lower Extremity: Right Full Weight Bearing Left Lower Extremity: Left Full Weight Bearing Referral Physician: Dr. Rogel Reason for Referral: Evaluation/Treatment Medical History Reviewed History: Yes Social History Home: Single Level Current Living Status: Children Entry Into Home: Level Entry Prior Prior Level of Function SCALE: Activities may be completed with or without assistive devices. 1-Nhjfdgklie-nzmfabb completes the activity by him/herself with no assistance from a helper. 5-Set-up or Clean-up Assistance-helper sets up or cleans up; patient completes activity. [place] assists only prior to or following the activity. 4-Supervision or Touching Assistance-helper provides verbal cues and/or touching/steadying and/or contact guard assistance as patient completes activity. Assistance may be provided throughout the activity or intermittently. 3-Partial/Moderate Assistance-helper does LESS THAN HALF the effort. [place] lifts, holds or supports trunk or limbs, but provides less than half the effort. 2-Substantial/Maximal Assistance-helper does MORE THAN HALF the effort. [place] lifts or holds trunk or limbs and provides more than half the effort. 0-Sxhtkidnx-gnjyuh does ALL the effort. Patient does none of the effort to complete the activity. Or, the assistance of 2 or more helpers is required for the patient to complete the activity. If activity was not attempted, code reason: 7-Patient Refused. 9-Not Applicable-not attempted and the patient did not perform the activity before the current illness, exacerbation or injury. 10-Not Attempted due to Environmental Limitations-(lack of equipment, weather restraints, etc.). 88-Not Attempted due to Medical Conditions or Safety Concerns. Bed Mobility: 6 Transfers (B,C,W/C): 6 Gait: 6 Stairs: 6 Indoor Mobility (Ambulation): Independent Stairs: Independent Prior Devices Use: Walker PT Evaluation-Current Subjective Patient lying supine in bed upon PT arrival, agreeable to treatment. Patient rates pain currently at 4/10 in her left elbow/arm. Objective Patient Orientation: Person, Place, Time, Situation ROM/Strength ROM Lower Extremities WFLs bilaterally all planes Strength Lower Extremities 3+/5 bilaterally all planes Sensory Vision: Functional Hearing: Functional Sensation Right Lower Extremit: Intact Sensation Left Lower Extremity: Intact Transfers Roll Left to Right (QC): 4 Sit to Lying (QC): 4 Lying to Sitting/Side of Bed(Q: 4 Sit to Stand (QC): 3 Chair/Tjv-my-Brbum Xfer(QC): 4 Gait Does the Patient Walk?: Yes Mode of Locomotion: Walk Anticipated Mode of Locomotion: Walk Walk 10 feet (QC): 4 Walk 50 ft with 2 Turns(QC): 4 Walk 150 ft (QC): 4 Distance: 160 feet Gait Assistive Device: FWW Balance Sitting Static: Good Sitting Dynamic: Good Standing Static: Fair Standing Dynamic: Fair Assessment/Needs Patient tolerated treatment well. Requires SBA for all bed mobility and transfers except for sit to stand, min A. Patient ambulates 160 feet with FWW, with SBA and verbal cues for safety, progression, posture and conservation of energy. Patient in bed post treatment with all needs met, nursing notified, c all light in reach. 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 Flying Squad Salesperson Goals PT Flying Squad Salesperson Goals Time Frame: Oct 18, 2021 Roll Left & Right (QC): 6 Sit to Lying (QC): 6 Lying-Sitting on Side/Bed(QC): 6 Sit to Stand (QC): 6 Chair/Psr-if-Ojzuq Xfer(QC): 6 Toilet Transfer (QC): 6 Does the Patient Walk: Yes Walk 10 feet (QC): 6 Walk 50ft with 2 Turns (QC): 6 Walk 150 ft (QC): 6 PT Plan Problem List Problem List: Activity Tolerance, Functional Strength, Safety, Balance, Gait, Transfer, Bed Mobility, ROM Treatment/Plan Treatment Plan: Continue Plan of Care Treatment Plan: Bed Mobility, Education, Functional Activity Paul, Functional Strength, Group Therapy, Gait, Safety, Therapeutic Exercise, Transfers Treatment Duration: Nov 06, 2021 Frequency: 6 times per week Estimated Hrs Per Day: .25 hour per day Patient and/or Family Agrees t: Yes Safety Risks/Education Patient Education: Gait Training, Transfer Techniques Teaching Recipient: Patient Teaching Methods: Demonstration, Discussion Response to Teaching: Verbalize Understanding, Return Demonstration Discharge Recommendations Target Placement Home Time/GCodes Time In: 1355 Time Out: 1425 Total Billed Treatment Time: 30 Total Billed Treatment Visit, chalino ZAMORA JOHN A PT Oct 08, 2021 14:31
[2021-10-08 15:15] VITALS: BP 143/67
[2021-10-08 19:27] VITALS: BP 184/81
[2021-10-08] MEDS: MICONAZOLE 2% POWDER (DESENEX AF) 90 GM TOP SCH (20:23)
[2021-10-08] MEDS ORDERED: PANTOPRAZOLE 40 MG (PROTONIX) TAB PO SCH (21:00)
[2021-10-08] MEDS: buPROPion SR 150 MG (WELLBUTRIN SR) TAB PO SCH (21:55)
[2021-10-08] MEDS ORDERED: ALPRAZolam 1 MG (XANAX) TAB PO PRN (22:00)
[2021-10-08 23:11] VITALS: BP 144/85
[2021-10-09 04:30] VITALS: BP 123/74
[2021-10-09] MEDS: inSUlin ASPART (NovoLOG) 1 UNIT/0.01 ML (CHARGE PER UNIT) SC SCH ×2 (05:19→12:01)
[2021-10-09 07:04] LABS: CALCIUM 8.9 MG/DL (8.5-10.1)
[2021-10-09 07:09] LABS: CREATININE SERUM 0.75 MG/DL (0.60-1.30)
[2021-10-09 07:11] LABS: MAGNESIUM 1.5 MG/DL (1.6-2.4)
[2021-10-09 07:52] VITALS: BP 145/84
[2021-10-09] MEDS: buPROPion SR 150 MG (WELLBUTRIN SR) TAB PO SCH (08:56)
[2021-10-09] MEDS: MAGNESIUM 1 GM/100 ML IVPB 100 ML IV SCH ×2 (08:57→12:01)
[2021-10-09] MEDS: lisINopril 20 MG (PRINIVIL) TABLET PO SCH (08:57)
[2021-10-09] MEDS: MICONAZOLE 2% POWDER (DESENEX AF) 90 GM TOP SCH (08:58)
--- NOTE | 2021-10-09 10:08 | Physical Therapy Daily Note ---
PT Daily Note-Current Subjective Patient sitting EOB pre tx, agrees to PT, has no complaints of pain. Appearance Patient sitting EOB post tx with nurse call, phone, tray, all needs met. Patient states she can lay down on her own when she needs to. Mental Status Patient Orientation: Person, Place, Situation Transfers SCALE: Activities may be completed with or without assistive devices. 6-Gfeuzhporm-jxcverk completes the activity by him/herself with no assistance from a helper. 5-Set-up or Clean-up Assistance-helper sets up or cleans up; patient completes activity. [place] assists only prior to or following the activity. 4-Supervision or Touching Assistance-helper provides verbal cues and/or touching/steadying and/or contact guard assistance as patient completes activity. Assistance may be provided throughout the activity or intermittently. 3-Partial/Moderate Assistance-helper does LESS THAN HALF the effort. [place] lifts, holds or supports trunk or limbs, but provides less than half the effort. 2-Substantial/Maximal Assistance-helper does MORE THAN HALF the effort. [place] lifts or holds trunk or limbs and provides more than half the effort. 4-Kzppzrkkt-cnwkch does ALL the effort. Patient does none of the effort to complete the activity. Or, the assistance of 2 or more helpers is required for the patient to complete the activity. If activity was not attempted, code reason: 7-Patient Refused. 9-Not Applicable-not attempted and the patient did not perform the activity before the current illness, exacerbation or injury. 10-Not Attempted due to Environmental Limitations-(lack of equipment, weather restraints, etc.). 88-Not Attempted due to Medical Conditions or Safety Concerns. Sit to Stand (QC): 6 Chair/Nej-wc-Pkzvk Xfer(QC): 4 (SBA) Weight Bearing Right Lower Extremity: Right Full Weight Bearing Left Lower Extremity: Left Full Weight Bearing Gait Training Distance: 400' Walk 10 feet (QC): 4 (SBA) Walk 50 ft with 2 Turns(QC): 4 (SBA) Walk 150 ft (QC): 4 (SBA) Gait Assistive Device: FWW slow but steady ambulation Treatments bed mobility and transfers, ambulation Assessment Current Status: Fair Progress improving endurance PT Detention Goals Detention Goals PT Detention Goals Time Frame: Oct 18, 2021 Roll Left & Right (QC): 6 Sit to Lying (QC): 6 Lying-Sitting on Side/Bed(QC): 6 Sit to Stand (QC): 6 Chair/Guz-jw-Ioovr Xfer(QC): 6 Toilet Transfer (QC): 6 Does the Patient Walk: Yes Walk 10 feet (QC): 6 Walk 50ft with 2 Turns (QC): 6 Walk 150 ft (QC): 6 PT Plan Problem List Problem List: Activity Tolerance, Functional Strength, Safety, Balance, Gait, Transfer, ROM Treatment/Plan Treatment Plan: Continue Plan of Care Treatment Plan: Bed Mobility, Education, Functional Activity Paul, Functional Strength, Group Therapy, Gait, Safety, Therapeutic Exercise, Transfers Treatment Duration: Nov 06, 2021 Frequency: 6 times per week Estimated Hrs Per Day: .25 hour per day Patient and/or Family Agrees t: Yes Safety Risks/Education Patient Education: Gait Training, Transfer Techniques, Correct Positioning, Safety Issues Teaching Recipient: Patient Teaching Methods: Demonstration, Discussion Response to Teaching: Reinforcement Needed Time/GCodes Time In: 938 Time Out: 948 Total Billed Treatment Time: 10 Total Billed Treatment 1 visit GT 10' MESSI MARTINEZ PT Oct 09, 2021 10:08
[2021-10-09 11:25] VITALS: BP 138/79
--- NOTE | 2021-10-09 11:29 | Discharge Summary ---
Discharge Summary Reconcile Patient Problems Problems Reviewed?: Yes Instructions for Patient Via [facility] [employer], Assessment/Instructions Frequent Falls Generalized Weakness Covid HTN HLD Hypo Mag Hypokalemia Physician to follow Patient: ROCKYHerman Discharge Diet for Home: ADA Diet, Cardiac Diet Hospital Course Date of Admission: Oct 07, 2021 at 14:45 Admission Diagnosis : Family Physician/Provider: Date of Discharge: 10/09/21 Discharge Diagnosis: Frequent Falls Generalized weakness Covid-19 HTN HLD hypokalemia hypomagnesium Hospital Course: [ ] Labs and Pending Lab Test: Laboratory Tests 10/08/21 15:19: Glucometer 147H 10/08/21 19:52: Glucometer 198H 10/09/21 05:15: Glucometer 129H 10/09/21 05:16: Sodium Level 138, Potassium Level 4.0, Chloride Level 102, Carbon Dioxide Level 28, Anion Gap 8, Blood Urea Nitrogen 12, Creatinine 0.75, Estimat Glomerular Daniel tration Rate 85, BUN/Creatinine Ratio 16, Glucose Level 122H, Calcium Level 8.9, Magnesium Level 1.5L 10/09/21 11:07: Glucometer 133H Home Meds Active Reported Bupropion HCl Sr (Bupropion HCl) 150 Mg Tablet.er 150 Mg PO BID Nitroglycerin 0.4 Mg Tab.subl 0.4 Mg SL UD PRN Ondansetron Odt (Ondansetron) 4 Mg Tab.rapdis 4 Mg PO Q8H PRN Aspirin EC (Aspirin) 325 Mg Tablet.dr 325 Mg PO DAILY Lisinopril 20 Mg Tablet 20 Mg PO DAILY Carvedilol 25 Mg Tablet 25 Mg PO BID Ubrelvy (Ubrogepant) 50 Mg Tablet 50 Mg PO DAILY PRN Alprazolam 0.5 Mg Tablet 0.25-0.5 Mg PO HS PRN Hydrocodone-Acetamin 10-325 mg (Hydrocodone/Acetaminophen) 10 Mg-325 Mg Tablet 1 Ea PO BID PRN Metformin HCl ER (Metformin HCl) 500 Mg Tab.er.24h 500 Mg PO HS Proair Hfa (Albuterol Sulfate) 1 Puff Puff 2 Puff IH Q4H PRN Omeprazole 40 Mg Capsule.dr 40 Mg PO DAILY Simvastatin 20 Mg Tablet 20 Mg PO HS Patient Allergies: Coded Allergies: banana (Verified Allergy, Severe, 10/07/21) oxycodone (Verified Allergy, Mild, ITCHING, 04/11/19) codeine (Verified Allergy, Unknown, 03/13/20) melon (Verified Allergy, Unknown, 10/07/21) tree nut (Verified Allergy, Unknown, 10/08/21) Height (Feet): 5 Height (Inches): 0.00 Weight (Pounds): 252 Weight (Ounces): 0.0 Home Health Need/Face to Face Date of Face to Face: Oct 09, 2021 Clinical Findings: Generalized weakness and fatigue, Instability, Unsteady gait I have seen Pt [id number]: Yes Discharged To: Home Diagnosis/Conditions: See above Patient is Homebound due to: Jai fall risk due to instabilty, Muscle weakness Homebound Status Due to the above stated illness, injury or surgical procedure (medical condition or diagnosis) and associated clinical findings, the patient is homebound because of his/her inability to leave home except with aid of a supportive device and/or person AND leaving the home requires a considerable and taxing effort or is medically contraindicated. Pt req the following assistanc: [facility] Nursing Orders Home Health Services Order: Physical Therapy-Evaluate & Treat Home Health Infusion Therapy Line Start Date: Oct 07, 2021 Therapy Orders Therapy Orders: Physical Therapy, PT to assess for OT Therapy Specific Orders: Increase strength/endurance Certify Stmt I certify that this patient is under my care and that I, a nurse practitioner or a physician; a hospital aides and assistants teacher working with me, had a face to face encounter that - meets the physician face to face encounter requirements with this patient as dated. Discharge Physical Exam General: Alert, Oriented X3, Cooperative, No Acute Distress HEENT: Mucous Memb Moist/Niotaze Lungs: Clear to Auscultation, Normal Air Movement Heart: Regular Rate, No Murmurs Abdomen: Normal Bowel Sounds, Soft, No Tenderness, No Masses Extremities: No Edema, No Tenderness/Swelling Neuro: Normal Speech, Sensation Intact, Cranial Nerves 3-12 NL Psych/Mental Status: Mental Status NL, Mood NL ANIYA PRIETO MD Oct 09, 2021 11:29
[2021-10-10] MEDS ORDERED: MAGNESIUM 1 GM/100 ML IVPB 100 ML IV SCH (06:00)
== END 2021-10-09 12:30 | disposition home or self-care (01) ==
LOC: EDUNIT# 10:30 → ER FS 10:31 → 4TH 14:07 → UNDOADMOB 14:45 → 4TH 14:45 → UNDODISOB 10-09 12:30
PROVIDERS: ADMIT Family Medicine; ATTEND Family Medicine
DX: R29.6 Repeated falls (principal); U07.1 COVID-19; I10 Essential (primary) hypertension; E78.5 Hyperlipidemia, unspecified; E87.6 Hypokalemia; E83.42 Hypomagnesemia; E13.65 Other specified diabetes mellitus with hyperglycemia; I95.1 Orthostatic hypotension; I82.409 Acute embolism and thrombosis of unspecified deep veins of unspecified lower extremity; Z79.01 Long term (current) use of anticoagulants; Z79.82 Long term (current) use of aspirin
CPT/HCPCS: 36415; 70450; 71045; 80048 ×2; 80053; 81000; 82947 ×3; 83605; 83735 ×3; 83880; 84484; 85025; 85610; 85730; 87636; 93005; 96366 ×2; 96376; 97116 ×2; 97162; 99284; G0378

== ENCOUNTER 2022-01-30 14:25 | Emergency (ER) | payer MEDICARE, OTHER ==
[~2022-01-30 14:25] MED LIST changes: +ALBU8.5H6 IH; +BUPR-105 PO; +NITR0.4T42 SL; -RT-ALBUINH IH
[2022-01-30] MEDS ORDERED: MAGNESIUM 1 GM/100 ML IVPB 100 ML IV STA (14:40)
[2022-01-30 14:47] LABS: BILIRUBIN,URINE NEGATIVE (NEGATIVE); CLARITY,URINE SL CLOUDY; COLOR,URINE YELLOW; GLUCOSE, URINE (UA) NEGATIVE (NEGATIVE); KETONES,URINE NEGATIVE (NEGATIVE); LEUKOCYTE ESTERASE ,URINE 3+ (NEGATIVE); NITRITE,URINE NEGATIVE (NEGATIVE); PH,URINE 6.5 (5-9); PROTEIN,URINE NEGATIVE (NEGATIVE)
[2022-01-30 14:50] LABS: BASOPHILS # (AUTO) 0.1 10^3/uL (0.0-0.1); BASOPHILS % (AUTO) 1 % (0-10); EOSINOPHILS # (AUTO) 0.4 10^3/uL (0.0-0.3); EOSINOPHILS % (AUTO) 5 % (0-10); HEMATOCRIT 37 % (35-52); HEMOGLOBIN 12.4 g/dL (11.5-16.0); LYMPHOCYTES # (AUTO) 1.7 10^3/uL (1.0-4.0); LYMPHOCYTES % (AUTO) 22 % (12-44); MEAN CORPUSCULAR HEMOGLOBIN 30 pg (25-34); MEAN CORPUSCULAR HGB CONC 33 g/dL (32-36); MEAN CORPUSCULAR VOLUME 91 fL (80-99); MEAN PLATELET VOLUME 10.3 fL (9.0-12.2); MONOCYTES # (AUTO) 0.7 10^3/uL (0.0-1.0); MONOCYTES % (AUTO) 8 % (0-12); NEUTROPHILS # (AUTO) 4.9 10^3/uL (1.8-7.8); NEUTROPHILS % (AUTO) 63 % (42-75); PLATELET COUNT 243 10^3/uL (130-400); WHITE BLOOD COUNT 7.8 10^3/uL (4.3-11.0)
--- NOTE | 2022-01-30 14:52 | ED General ---
General Chief Complaint: General Problems/Pain Stated Complaint: FALL, NOT ACTING RIGHT Nursing Triage Note: PT BROUGHT IN BY EMS BECAUSE FAMILY SAID SHE WAS NOT "ACTING" RIGHT. THEY ALSO REPORTED TO EMS THAT SHE HAS NOT TAKEN HER MAGNESIUM ALL WEEK. Source of Information: Patient, EMS, Old Records History of Present Illness Date Seen by Provider: Jan 30, 2022 Time Seen by Provider: 14:25 Initial Comments 72 yo female presents by EMS with complaints of weakness and difficulty ambulating in last few days. She also has had some confusion per family report to EMS. She denies headache, fever, chills, nausea, vomiting, chest pain, abdominal pain, cough. She denies having any dysuria or increased urination. She states that she had run out of her medicines and that is why she had not taken any of her magnesium for the last week. She had similar symptoms in the past with a low magnesium. Timing/Duration: 1 Week Severity: Moderate Associated Systoms: No Chest Pain, No Cough, No Diaphoresis, No Fever/Chills, No Headaches, No Loss of Appetite, No Malaise, No Nausea/Vomiting, No Rash, No Seizure, No Shortness of Air, No Syncope; Weakness Allergies and Home Medications Allergies Coded Allergies: banana (Verified Allergy, Severe, 10/07/21) oxycodone (Verified Allergy, Mild, ITCHING, 04/11/19) codeine (Verified Allergy, Unknown, 03/13/20) melon (Verified Allergy, Unknown, 10/07/21) tree nut (Verified Allergy, Unknown, 10/08/21) Patient Home Medication List Home Medication List Reviewed: Yes Albuterol Sulfate (Ventolin Hfa) 1 Puff Puff, 2 PUFF IH Q4H PRN for SHORTNESS OF BREATH, (Reported) Entered as Reported by: ZENIA PABON on 10/28/18 0920 Alprazolam (Alprazolam) 0.5 Mg Tablet, 0.25-0.5 MG PO HS PRN for ANXIETY, (Reported) Entered as Reported by: ZENIA PABON on 08/14/21 1600 Aspirin (Aspirin EC) 325 Mg Tablet.dr, 325 MG PO DAILY, (Reported) Entered as Reported by: ZENIA PABON on 08/14/21 1600 Bupropion HCl (Bupropion HCl Sr) 150 Mg Tablet.er, 150 MG PO BID, (Reported) Entered as Reported by: ZENIA PABON on 10/08/21 101 Carvedilol (Carvedilol) 25 Mg Tablet, 25 MG PO BID, (Reported) Entered as Reported by: ZENIA PABON on 08/14/211599 Cephalexin (Cephalexin) 500 Mg Capsule, 500 MG PO TID Prescribed by: ANTONIETTA ASTUDILLO on 01/30/22 1541 Hydrocodone/Acetaminophen (Hydrocodone-Acetamin 10-325 mg) 10 Mg-325 Mg Tablet, 1 EA PO BID PRN for PAIN-MODERATE (5-7), (Reported) Entered as Reported by: ZENIA PABON on 08/14/211599 Lisinopril (Lisinopril) 20 Mg Tablet, 20 MG PO DAILY, (Reported) Entered as Reported by: ZENIA PABON on 08/14/211599 Metformin HCl (Metformin HCl ER) 500 Mg Tab.er.24h, 500 MG PO HS, (Reported) Entered as Reported by: ZENIA PABON on 08/14/211599 Nitroglycerin (Nitroglycerin) 0.4 Mg Tab.subl, 0.4 MG SL UD PRN for CHEST PAIN (ANGINA), (Reported) Entered as Reported by: ZENIA PABON on 10/08/21 101 Omeprazole (Omeprazole) 40 Mg Capsule.dr, 40 MG PO DAILY, (Reported) Entered as Reported by: ZENIA PABON on 10/28/18 09 Ondansetron (Ondansetron Odt) 4 Mg Tab.rapdis, 4 MG PO Q8H PRN for NAUSEA/VOMITING-1ST LINE, (Reported) Entered as Reported by: ZENIA PABON on 10/08/21 101 Simvastatin (Simvastatin) 20 Mg Tablet, 20 MG PO HS, (Reported) Entered as Reported by: ZENAI PABON on 10/28/18 09 Ubrogepant (Ubrelvy) 50 Mg Tablet, 50 MG PO DAILY PRN for MIGRAINE, (Reported) Entered as Reported by: ZENIA PABON on 08/14/211599 Review of Systems Review of Systems Constitutional: see HPI; No chills, No fever EENTM: no symptoms reported Respiratory: no symptoms reported Cardiovascular: no symptoms reported Gastrointestinal: no symptoms reported Genitourinary: No dysuria Musculoskeletal: no symptoms reported Skin: no symptoms reported Psychiatric/Neurological: See HPI Past Jhmfgfy-Orygbo-Jhztgn Hx Patient Social History Tobacco Use?: No Use of E-Cig and/or Vaping dev: No Substance use?: No Alcohol Use?: No Pt feels they are or have been: No Immunizations Up To Date PED Vaccines UTD: No Seasonal Allergies Seasonal Allergies: Yes (POSSIBLY MILD) Past Medical History Surgery/Hospitalization HX: cardiac cath, 3 breast biopsies, carpel tunnel, gallblabber removed, left total knee, panocelctomy Surgeries: Yes (L TKR, L WRIST) Gallbladder, Orthopedic Respiratory: Yes (O2 2L AT NIGHT) Asthma Currently Using CPAP: No Currently Using BIPAP: No Cardiac: Yes (STENTS-2007) Coronary Artery Disease, Heart Attack, High Cholesterol, Hypertension Neurological: Yes Headaches /Migraines Sexually Transmitted Disease: No HIV/AIDS: No Genitourinary: No Gastrointestinal: Yes Gastroesophageal Reflux, Chronic Diarrhea Musculoskeletal: Yes (KNEES/HANDS) Arthritis, Chronic Back Pain Endocrine: Yes Diabetes, Non-Insulin dep HEENT: Yes (READING GLASSES) Loss of Vision: Denies Hearing Impairment: Denies Cancer: No Psychosocial: Yes Anxiety Integumentary: Yes (BACTERIAL INFECTION OF SKIN JAN 2019) Blood Disorders: No Adverse Reaction/Blood Tranf: No (HAS HAD BLOOD WITH NO REACTION) Family Medical History No Pertinent Family Hx Physical Exam Vital Signs Vital Signs - First Documented 01/30/22 14:27 Temp 36.1 Pulse 59 Resp 16 B/P (MAP) 197/72 (113) Pulse Ox 95 O2 Delivery Room Air Capillary Refill : Less Than 3 Seconds Height, Weight, BMI Height: 5'0.00" Weight: 252lbs. 0.0oz. [id number]; 32.17 BMI Method: General Appearance: No Apparent Distress, Obese HEENT: PERRL/EOMI, Pharynx Normal Neck: Full Range of Motion, Normal Inspection, Non Tender, Supple Respiratory: Chest Non Tender, Lungs Clear, Normal Breath Sounds, No Accessory Muscle Use, No Respiratory Distress Cardiovascular: Regular Rate, Rhythm, Normal Peripheral Pulses Gastrointestinal: Normal Bowel Sounds, No Pulsatile Mass, Non Tender, Soft Rectal: Deferred Extremity: Normal Capillary Refill, Normal Inspection, No Pedal Edema Neurologic/Psychiatric: Alert, Oriented x3, No Motor/Sensory Deficits, putty patcher II- XII Norm as Tested Skin: Normal Color, Warm/Dry Focused Exam Lactate Level 01/30/22 14:30: Lactic Acid Level 1.73 Lactic Acid Level Laboratory Tests Test 01/30/22 14:30 Lactic Acid Level 1.73 MMOL/L (0.50-2.00) Progress/Results/Core Measures Suspected Sepsis SIRS Temperature: Pulse: 59 Respiratory Rate: 16 Laboratory Tests 01/30/22 14:30: White Blood Count 7.8 Blood Pressure 197 /72 Mean: 113 01/30/22 14:30: Lactic Acid Level 1.73 Laboratory Tests 01/30/22 14:30: Creatinine 0.91, INR Comment 0.9, Platelet Count 243, Total Bilirubin 0.4 Results/Orders Lab Results Laboratory Tests Test 01/30/22 14:30 01/30/22 14:35 Range/Units White Blood Count 7.8 4.3-11.0 10^3/uL Red Blood Count 4.08 3.80-5.11 10^6/uL Hemoglobin 12.4 11.5-16.0 g/dL Hematocrit 37 35-52 % Mean Corpuscular Volume 91 80-99 fL Mean Corpuscular Hemoglobin 30 25-34 pg Mean Corpuscular Hemoglobin Concent 33 32-36 g/dL Red Cell Distribution Width 13.0 10.0-14.5 % Platelet Count 243 130-400 10^3/uL Mean Platelet Volume 10.3 9.0-12.2 fL Immature Granulocyte % (Auto) 0 % Neutrophils (%) (Auto) 63 42-75 % Lymphocytes (%) (Auto) 22 12-44 % Monocytes (%) (Auto) 8 0-12 % Eosinophils (%) (Auto) 5 0-10 % Basophils (%) (Auto) 1 0-10 % Neutrophils # (Auto) 4.9 1.8-7.8 10^3/uL Lymphocytes # (Auto) 1.7 1.0-4.0 10^3/uL Monocytes # (Auto) 0.7 0.0-1.0 10^3/uL Eosinophils # (Auto) 0.4 H 0.0-0.3 10^3/uL Basophils # (Auto) 0.1 0.0-0.1 10^3/uL Immature Granulocyte # (Auto) 0.0 0.0-0.1 10^3/uL Prothrombin Time 12.9 12.2-14.7 SEC INR Comment 0.9 0.8-1.4 Activated Partial Thromboplast Time 27 24-35 SEC Sodium Level 140 135-145 MMOL/L Potassium Level 4.1 3.6-5.0 MMOL/L Chloride Level 102 98-107 MMOL/L Carbon Dioxide Level 26 21-32 MMOL/L Anion Gap 12 5-14 MMOL/L Blood Urea Nitrogen 12 7-18 MG/DL Creatinine 0.91 0.60-1.30 MG/DL Estimat Glomerular Filtration Rate 67 BUN/Creatinine Ratio 13 Glucose Level 109 H 70-105 MG/DL Lactic Acid Level 1.73 0.50-2.00 MMOL/L Calcium Level 9.6 8.5-10.1 MG/DL Corrected Calcium 9.8 8.5-10.1 MG/DL Magnesium Level 1.8 1.6-2.4 MG/DL Total Bilirubin 0.4 0.1-1.0 MG/DL Aspartate Amino Transf (AST/SGOT) 17 5-34 U/L Alanine Aminotransferase (ALT/SGPT) 10 0-55 U/L Alkaline Phosphatase 83 40-136 U/L Total Protein 6.7 6.4-8.2 GM/DL Albumin 3.7 3.2-4.5 GM/DL Urine Color YELLOW Urine Clarity SL CLOUDY Urine pH 6.5 5-9 Urine Specific Trinity 1.010 L 1.016-1.022 Urine Protein NEGATIVE NEGATIVE Urine Glucose (UA) NEGATIVE NEGATIVE Urine Ketones NEGATIVE NEGATIVE Urine Nitrite NEGATIVE NEGATIVE Urine Bilirubin NEGATIVE NEGATIVE Urine Urobilinogen 0.2 < = 1.0 MG/DL Urine Leukocyte Esterase 3+ H NEGATIVE Urine RBC (Auto) NEGATIVE NEGATIVE Urine RBC NONE /HPF Urine WBC 10-25 H /HPF Urine Squamous Epithelial Cells 0-2 /HPF Urine Crystals NONE /LPF Urine Bacteria LARGE H /HPF Urine Casts NONE /LPF Urine Mucus NEGATIVE /LPF Urine Culture Indicated YES My Orders Orders - ANTONIETTA ASTUDILLO MD Cbc With Automated Diff (01/30/22 14:38) Magnesium (01/30/22 14:38) Comprehensive Metabolic Panel (01/30/22 14:38) Protime With Inr (01/30/22 14:38) Partial Thromboplastin Time (01/30/22 14:38) Monitor-Rhythm Ecg Trace Only (01/30/22 14:38) Ed Iv/Invasive Line Start (01/30/22 14:38) Lipase (01/30/22 14:38) Ua Culture If Indicated (01/30/22 14:38) Ct Head Wo (01/30/22 14:38) Blood Culture (01/30/22 14:38) Lactic Acid Analyzer (01/30/22 14:38) Magnesium 1 Gm/100 Ml Ivpb (Magnesium Moya (01/30/22 14:40) Urine Culture (01/30/22 14:35) Ceftriaxone 1 Gm Pre-Mix (Rocephin 1 Gm (01/30/22 15:19) Vital Signs/I&O 01/30/22 01/30/22 14:27 15:45 Temp 36.1 36.1 Pulse 59 59 Resp 16 16 B/P (MAP) 197/72 (113) 197/72 Pulse Ox 95 95 O2 Delivery Room Air Room Air Capillary Refill : Less Than 3 Seconds Blood Pressure Mean: 113 Progress Note #1: Progress Note Obtain labs to evaluate her blood count to look for signs of infection or anemia. Chemistry panel to look for electrolyte imbalance as well as magnesium level. Since she had some increased confusion at home will also check blood c ultures and lactic acid to evaluate for possible sepsis. CT scan of the head to look for signs of stroke or bleeding or mass. Give magnesium 1 g IV while waiting on test results since she had similar symptoms in the past with hypomagnesemia. Progress Note #2: Progress Note CBC does not show elevated white blood cell count or anemia. Chemistry panel appears stable without acute significant abnormality. Her magnesium was 1.8 and lactic acid 1.7. She had findings of a urinary tract infection with leukocyte esterase, white blood cells, bacteria. CT scan of the head did not show any acute intracranial process. Administer Rocephin 1 g IV to initiate treatment for the UTI. This is likely her source of being weak and confused at times. However she has been alert and oriented here and does not have an indication for acute admission currently. Encouraged family to provide additional help and support at home for the next day or 2 while she regains some strength. If she worsens or has more problems and have her reevaluated. Take the full course of antibiotics and medications as prescribed Diagnostic Imaging Diagonstic Imaging: CT Plain Films/CT/US/NM/MRI: head Comments [facility]. [place], [place] NAME: KATHARINA BARRERA [facility] REC#: [id number] PT STATUS: REG ER : 1950 PHYSICIAN: ANTONIETTA ASTUDILLO MD ADMIT DATE: 01/30/22/ER FS Signed Date of Exam:01/30/22 CT HEAD WO PROCEDURE: CT head without contrast. TECHNIQUE: Multiple contiguous axial images were obtained through the brain without the use of intravenous contrast. Auto Exposure Controls were utilized during the CT exam to meet ALARA standards for radiation dose reduction. DATE: January 30, 2022. COMPARISON: CT head October 07, 2021. INDICATION: 72-year-old female, altered mental status. Generalized weakness. FINDINGS: The ventricles and cerebral spinal fluid spaces are of normal size and configuration for the patient's age. There is no mass effect or midline shift. There is no acute intracranial hemorrhage. There is no abnormal extra-axial fluid collection. The visualized portions of the paranasal sinuses, mastoid air cells and middle ears are well aerated. IMPRESSION: No identified acute intracranial abnormality. Dictated by: Dictated on workstation # [id number] Dict: 01/30/22 1512 Trans: 01/30/22 1526 [facility] [id number] Interpreted by: FARAZ VILLALOBOS MD Electronically signed by: FARAZ VILLALOBOS MD 01/30/22 1526 Reviewed: Reviewed by Mn Departure Impression Primary Impression: Acute cystitis without hematuria Additional Impression: Generalized weakness Disposition: 01 HOME, SELF-CARE Condition: Stable Departure-Patient Inst. Decision time for Depature: 15:39 Referrals: SELFBEENA MD (PCP/Family) Primary Care Physician Patient Instructions: Weakness ED, Urinary Tract Infection, Adult ED Add. Discharge Instructions: Stay well hydrated and drink plenty of fluids Take full course of antibiotics to treat for urine infection. Take your medicine as prescribed. Follow up with clinic for further concerns. All discharge instructions reviewed with patient and/or family. Voiced understanding. Scripts Cephalexin (Cephalexin) 500 Mg Capsule 500 MG PO TID for UTI for 7 Days, #21 CAP 0 Refills Prov: ANTONIETTA ASTUDILLO MD 01/30/22 ANTONIETTA ASTUDILLO MD Jan 30, 2022 14:52
[2022-01-30 14:55] LABS: BACTERIA,URINE LARGE /HPF; SQUAMOUS EPITHELIAL CELL,UR 0-2 /HPF
[2022-01-30 14:58] LABS: INR 0.9 (0.8-1.4); PROTHROMBIN TIME PATIENT 12.9 SEC (12.2-14.7)
[2022-01-30 15:14] LABS: BILIRUBIN,TOTAL 0.4 MG/DL (0.1-1.0); CALCIUM 9.6 MG/DL (8.5-10.1); CREATININE SERUM 0.91 MG/DL (0.60-1.30); MAGNESIUM 1.8 MG/DL (1.6-2.4); POTASSIUM 4.1 MMOL/L (3.6-5.0); TOTAL PROTEIN 6.7 GM/DL (6.4-8.2)
[2022-01-30 15:15] LABS: ALBUMIN 3.7 GM/DL (3.2-4.5)
[2022-01-30] MEDS ORDERED: cefTRIAXone 1 GM PRE-MIX 50 ML IV STA (15:19)
--- NOTE | 2022-01-30 15:25 | Diagnostic Imaging Report ---
PROCEDURE: CT head without contrast. TECHNIQUE: Multiple contiguous axial images were obtained through the brain without the use of intravenous contrast. Auto Exposure Controls were utilized during the CT exam to meet ALARA standards for radiation dose reduction. DATE: January 30, 2022. COMPARISON: CT head October 07, 2021. INDICATION: 72-year-old female, altered mental status. Generalized weakness. FINDINGS: The ventricles and cerebral spinal fluid spaces are of normal size and configuration for the patient's age. There is no mass effect or midline shift. There is no acute intracranial hemorrhage. There is no abnormal extra-axial fluid collection. The visualized portions of the paranasal sinuses, mastoid air cells and middle ears are well aerated. IMPRESSION: No identified acute intracranial abnormality. Dictated by: Dictated on workstation # [id number]
[2022-01-30] MEDS ORDERED: CEPH500C PO (15:41)
[2022-01-30 15:45] VITALS: BP 197/72
== END 2022-01-30 16:24 | disposition home or self-care (01) ==
LOC: EDUNIT# 14:25 → ER FS 14:27
DX: N30.00 Acute cystitis without hematuria (principal)
CPT/HCPCS: 36415; 70450; 80053; 81000; 83605; 83690; 83735; 85025; 85610; 85730; 87040; 87077; 87088; 87186; 93041

== ENCOUNTER 2022-05-07 05:40 | Outpatient (CLI) | payer MEDICARE, OTHER ==
[~2022-05-07] VITALS: Ht 152.4 cm; Wt 97.1 kg
[~2022-05-07 05:40] MED LIST changes: +CEPH500C PO
== END 2022-05-16 13:03 | disposition home or self-care (01) ==
LOC: PREOP 05:40
PROVIDERS: ATTEND Surgery
DX: Z01.818 Encounter for other preprocedural examination (principal)

== ENCOUNTER 2022-06-02 11:29 | Day surgery (SDC) | payer MEDICARE, OTHER ==
[~2022-06-02] VITALS: Ht 152.4 cm; Wt 97.1 kg
[2022-06-02] MEDS ORDERED: LACTATED RINGERS 1,000 ML IV STA (11:34)
[2022-06-02] MEDS ORDERED: HURRICAINE EXT TUBE (BENZOCAINE) XX PRN (11:45)
[2022-06-02] MEDS ORDERED: LACTATED RINGERS 1,000 ML IV ONE (11:46)
[2022-06-02] MEDS ORDERED: HURRICAINE EXT TUBE (BENZOCAINE) ONE (11:46)
[2022-06-02] MEDS ORDERED: proPOfol 200 MG/20 ML (DIPRIVAN) VIAL IV ONE (11:48)
[2022-06-02 11:55] VITALS: BP 201/95
[2022-06-02 12:30] VITALS: BP 201/73
--- NOTE | 2022-06-02 12:32 | Progress Note-Post Operative ---
Post-Operative Progess Note Surgeon (s)/Landscape Architecture Professor (s) Surgeon AYO KWAN DO Landscape Architecture Professor: none Pre-Operative Diagnosis Gastritis Post-Operative Diagnosis Gastritis Hiatal hernia Procedure & Operative Findings Date of Procedure 06/02/22 Procedure Performed/Findings EGD with biopsy PROCEDURE NOTE: After informed consent was obtained, the patient was brought to the endoscopy suite, placed in bed in left lateral decubitus position. She was administered IV sedation by the HIGHWAY PATROL COMMANDER who then monitored vitals the entire time, heart rate, blood pressure and pulse ox and the scope was inserted down the mouth through the esophagus into the stomach. On the way down, noted some mild esophagitis, took a picture, pushed into the stomach, pushed past the antrum into the duodenum. Duodenum looked good. Pulled back, noted some moderate gastritis and did a biopsy of the antrum and the body of the stomach. Then retroflexed the scope, saw a small hiatal hernia, took a picture of this and the n pulled the scope into the GE junction, took another picture of the hiatal hernia and then did a biopsy of the GE junction. Pushed the scope back into the stomach, suctioned all the air out of the stomach. At this point pulled the scope up the esophagus and out the mouth. The patient tolerated the procedure, and she recovered in endoscopy suite. Anesthesia Type IV sedation by HIGHWAY PATROL COMMANDER Estimated Blood Loss Estimated blood loss (mL): scant Specimens/Packing Specimens Removed antral bx body of stomach bx GE jxn bx AYO KWAN DO Jun 02, 2022 12:32
--- NOTE | 2022-06-02 12:34 | Endoscopy Discharge Instruct ---
Endo Procedure/Findings Findings 1.: Gastritis 2.: Hiatal Hernia Discharge Instructions - Activity: You might feel a little sleepy until tomorrow. This is due to the medicine you received to relax you. Until tomorrow, you should: NOT drive a car, operate machinery or power tools. NOT drink any alcoholic beverages. NOT make any important decisions or sign importortant papers. Do not return to work until tomorrow, unless otherwise instructed. Resume previous activities tomorrow. Diet: Start by taking liquids. If you tolerate liquids, advance to solid food. 1.: EGD in 3 years Notify Physician - If you experience excessive bleeding, unusual abdominal pain, fever, or chest pain, contact your doctor immediately. Follow-Up: Other Follow up My office in one week AYO KWAN DO Jun 02, 2022 12:34
[2022-06-02 12:35] VITALS: BP 160/73
--- NOTE | 2022-06-02 12:51 | Anesthesia-General Post-Op ---
MAC Patient Condition Mental Status/LOC: Same as Preop Cardiovascular: Satisfactory Nausea/Vomiting: Absent Respiratory: Satisfactory Pain: Controlled Complications: Absent Post Op Complications Complications None Follow Up Care/Instructions Patient Instructions None needed. Anesthesiology Discharge Order Discharge Order Patient is doing well, no complaints, stable vital signs, no apparent adverse anesthesia problems. No complications reported per nursing. THEO YOUSIF CRNA Jun 02, 2022 12:51
[2022-06-02 12:55] VITALS: BP 140/116
[2022-06-02 13:10] VITALS: BP 140/116
== END 2022-06-02 13:10 | disposition home or self-care (01) ==
LOC: ENDO 11:29
PROVIDERS: ATTEND Surgery
DX: K29.50 Unspecified chronic gastritis without bleeding (principal); K44.9 Diaphragmatic hernia without obstruction or gangrene; K21.00 Gastro-esophageal reflux disease with esophagitis, without bleeding; Z85.038 Personal history of other malignant neoplasm of large intestine; E11.9 Type 2 diabetes mellitus without complications; Z79.84 Long term (current) use of oral hypoglycemic drugs; Z95.5 Presence of coronary angioplasty implant and graft; E66.9 Obesity, unspecified; Z68.41 Body mass index [BMI] 40.0-44.9, adult